=== PATIENT | male | born 1965 | race Caucasian/White ===

== ENCOUNTER 2019-03-24 09:32 | Emergency (ER) | payer SELFPAY ==
[2019-03-24] MEDS ORDERED: predniSONE 20 MG TAB ONE (10:25)
[2019-03-24] MEDS ORDERED: FAMOTIDINE 20 MG TAB ONE (10:25)
[2019-03-24] MEDS ORDERED: ALBUTEROL 2.5 MG/3 ML NEB SOL ONE (10:25)
[2019-03-24] MEDS ORDERED: AZITHROMYCIN 250 MG TAB ONE (10:25)
--- NOTE | 2019-03-24 10:38 | RAD REPORT ---
EXAM DESCRIPTION: Che Davis (2 Views)03/24/2019 10:30 am CLINICAL HISTORY: Cough COMPARISON: 2018 FINDINGS: The lungs appear clear of acute infiltrate. The heart is normal size IMPRESSION: No acute abnormalities displayed
--- NOTE | 2019-03-24 10:55 | ER ---
Nurse's Notes [facility] Name: Juvencio Iyer III Age: 54 yrs Sex: Male : 1965 Arrival Date: 03/24/2019 Time: 09:35 Bed 20 Private MD: Diagnosis: Bronchitis, not specified as acute or chronic;Malaise and fatigue Presentation: 03/24 09:40 Presenting complaint: Productive cough, sinus congestion, dizziness, generalized hb weakness, and malaise x 2 weeks. Transition of care: patient was not received from another setting of care. Onset of symptoms was March 10, 2019. Risk Assessment: Do you want to hurt yourself or someone else? Patient reports no desire to harm self or others. Initial Sepsis Screen: Does the patient meet any 2 criteria? No. Patient's initial sepsis screen is negative. Does the patient have a suspected source of infection? No. Patient's initial sepsis screen is negative. Care prior to arrival: None. 09:40 Method Of Arrival: Ambulatory hb 09:40 Acuity: JESSY 3 hb Triage Assessment: 09:40 General: Appears in no apparent distress. comfortable, Behavior is cooperative, bp appropriate for age, anxious. Pain: Complains of pain in GENERALIZED MYALGIA. EENT: No deficits noted. Neuro: No deficits noted. Cardiovascular: No deficits noted. Respiratory: Breath sounds are coarse bilaterally. GI: No signs and/or symptoms were reported involving the gastrointestinal system. : No signs and/or symptoms were reported regarding the genitourinary system. Derm: No deficits noted. Musculoskeletal: No deficits noted. Historical: - Allergies: 09:42 Codeine; hb - Home Meds: 09:42 None [Active]; hb - PMHx: 09:42 None; hb - PSHx: 09:42 None; hb - Immunization history:: Adult Immunizations up to date. - Social history:: Smoking status: Patient uses tobacco products, smokes one-half pack cigarettes per day. - Ebola Screening: : No symptoms or risks identified at this time. Screenin:01 Abuse screen: Denies threats or abuse. Denies injuries from another. Nutritional bp screening: No deficits noted. Tuberculosis screening: No symptoms or risk factors identified. Fall Risk None identified. Assessment: 09:58 General: SEE TRIAGE NOTE. Cardiovascular: Patient's skin is warm and dry. Respiratory: bp Airway is patent. Respiratory: Breath sounds are clear bilaterally. GI: No signs and/or symptoms were reported involving the gastrointestinal system. : No signs and/or symptoms were reported regarding the genitourinary system. EENT: No deficits noted. Derm: No deficits noted. Musculoskeletal: No deficits noted. 11:12 Reassessment: PT D/C HOME AMBULATORY WITH FAMILY, DX WITH BRONCHITIS. bp Vital Signs: 09:42 BP 127 / 79; Pulse 83; Resp 16; Temp 97.9; Pulse Ox 97% on R/A; Weight 73.03 kg; Height hb 5 ft. 10 in. (177.80 cm); Pain 7/10; 11:13 BP 131 / 75; Pulse 91; Resp 17; Temp 98; Pulse Ox 98% ; bp 09:42 Body Mass Index 23.10 (73.03 kg, 177.80 cm) hb ED Course: 09:35 Patient arrived in ED. as 09:41 Triage completed. hb 09:42 Arm band placed on. hb 09:43 Dana James FNP-C [facility]. snw 09:43 Farzad Bartholomew MD is Attending Physician. snw 09:45 Nate Martinez, RUFINA is Primary Nurse. bp 10:02 Patient has correct armband on for positive identification. Bed in low position. Call bp light in reach. Side rails up X2. 10:31 Chest Pa And Lat (2 Views) XRAY In Process Unspecified. EDMS 11:12 No provider procedures requiring assistance completed. Patient did not have IV access bp during this emergency room visit. Administered Medications: 10:20 Drug: Albuterol 2.5 mg Route: Inhalation; bp 10:20 Drug: predniSONE 40 mg Route: PO; bp 11:13 Follow up: Response: No adverse reaction bp 10:20 Drug: Pepcid 20 mg Route: PO; bp 11:13 Follow up: Response: No adverse reaction bp 10:20 Drug: Zithromax 500 mg Route: PO; bp 11:13 Follow up: Response: No adverse reaction bp Outcome: 10:54 Discharge ordered by . snw 11:12 Discharged to home ambulatory, with family. bp 11:12 Condition: stable 11:12 Discharge instructions given to patient, Instructed on discharge instructions, follow up and referral plans. medication usage, Demonstrated understanding of instructions, follow-up care, medications, Prescriptions given X 4. 11:14 Patient left the ED. bp Signatures: Dispatcher [employer] EDMS Dana James, TIM-Real DUMONT-Vanessa Lares Heather, RN RN Nate Martinez RN RN bp
--- NOTE | 2019-03-24 10:55 | EDPHYS ---
Physician Documentation [facility] Name: Juvencio Iyer III Age: 54 yrs Sex: Male : 1965 Arrival Date: 03/24/2019 Time: 09:35 Bed 20 Private MD: ED Physician Farzad Bartholomew HPI: 03/24 11:23 This 54 yrs old Male presents to ER via Ambulatory with complaints of snw Congestion. 11:23 Onset: The symptoms/episode began/occurred gradually, 2 week(s) ago, and became worse snw and became persistent. Associated signs and symptoms: Pertinent positives: cough, wheezing. It is unknown whether or not the patient has had similar symptoms in the past. The patient has not recently seen a physician. Historical: - Allergies: :42 Codeine; hb - Home Meds: :42 None [Active]; hb - PMHx: :42 None; hb - PSHx: 09:42 None; hb - Immunization history:: Adult Immunizations up to date. - Social history:: Smoking status: Patient uses tobacco products, smokes one-half pack cigarettes per day. - Ebola Screening: : No symptoms or risks identified at this time. ROS: 11:22 Constitutional: Negative for fever, chills, and weight loss, + fatigue and malaise snw Eyes: Negative for injury, pain, redness, and discharge, ENT: Negative for injury, pain, and discharge, Neck: Negative for injury, pain, and swelling, Cardiovascular: Negative for chest pain, palpitations, and edema, Abdomen/GI: Negative for abdominal pain, nausea, vomiting, diarrhea, and constipation, Back: Negative for injury and pain, : Negative for injury, bleeding, discharge, and swelling, MS/Extremity: Negative for injury and deformity, Skin: Negative for injury, rash, and discoloration, Neuro: Negative for headache, weakness, numbness, tingling, and seizure. 11:22 Respiratory: Positive for cough, wheezing. Exam: 11:06 Constitutional: This is a well developed, well nourished patient who is awake, alert, snw and in no acute distress. Head/Face: Normocephalic, atraumatic. Eyes: Pupils equal round and reactive to light, extra-ocular motions intact. Lids and lashes normal. Conjunctiva and sclera are non-icteric and not injected. Cornea within normal limits. Periorbital areas with no swelling, redness, or edema. Neck: Trachea midline, no thyromegaly or masses palpated, and no cervical lymphadenopathy. Supple, full range of motion without nuchal rigidity, or vertebral point tenderness. No Meningismus. Chest/axilla: Normal chest wall appearance and motion. Nontender with no deformity. No lesions are appreciated. Cardiovascular: Regular rate and rhythm with a normal S1 and S2. No gallops, murmurs, or rubs. Normal PMI, no JVD. No pulse deficits. Respiratory: Lungs have equal breath sounds bilaterally, clear to auscultation and percussion. No rales, rhonchi or wheezes noted. No increased work of breathing, no retractions or nasal flaring. Abdomen/GI: Soft, non-tender, with normal bowel sounds. No distension or tympany. No guarding or rebound. No evidence of tenderness throughout. Back: No spinal tenderness. No costovertebral tenderness. Full range of motion. Skin: Warm, dry with normal turgor. Normal color with no rashes, no lesions, and no evidence of cellulitis. MS/ Extremity: Pulses equal, no cyanosis. Neurovascular intact. Full, normal range of motion. Neuro: Awake and alert, GCS 15, oriented to person, place, time, and situation. Cranial nerves II-XII grossly intact. Motor strength 5/5 in all extremities. Sensory grossly intact. Cerebellar exam normal. Normal gait. Psych: Awake, alert, with orientation to person, place and time. Behavior, mood, and affect are within normal limits. 11:06 ENT: Ear canal(s): are normal, TM's: erythema, Nose: is normal, Mouth: is normal, Posterior pharynx: erythema, that is mild, that is moderate, Voice: is normal. Vital Signs: 09:42 BP 127 / 79; Pulse 83; Resp 16; Temp 97.9; Pulse Ox 97% on R/A; Weight 73.03 kg; Height hb 5 ft. 10 in. (177.80 cm); Pain 7/10; 11:13 BP 131 / 75; Pulse 91; Resp 17; Temp 98; Pulse Ox 98% ; bp 09:42 Body Mass Index 23.10 (73.03 kg, 177.80 cm) hb MDM: 09:45 Patient medically screened. [facility] 11:05 Data reviewed: vital signs, nurses notes. Data interpreted: Pulse oximetry: on room air snw is 97 %. Interpretation: normal. Counseling: I had a detailed discussion with the patient and/or guardian regarding: the historical points, exam findings, and any diagnostic results supporting the discharge/admit diagnosis, radiology results, the need for outpatient follow up, to return to the emergency department if symptoms worsen or persist or if there are any questions or concerns that arise at home. Counseling: I had a detailed discussion with the patient and/or guardian regarding: smoking cessation. Special discussion: Based on the history and exam findings, there is no indication for further emergent testing or inpatient evaluation. I discussed with the patient/guardian the need to see the primary care provider for further evaluation of the symptoms. 03/24 10:05 Order name: Chest Pa And Lat (2 Views) XRAY; Complete Time: 10:42 snw Administered Medications: 10:20 Drug: Albuterol 2.5 mg Route: Inhalation; bp 10:20 Drug: predniSONE 40 mg Route: PO; bp 11:13 Follow up: Response: No adverse reaction bp 10:20 Drug: Pepcid 20 mg Route: PO; bp 11:13 Follow up: Response: No adverse reaction bp 10:20 Drug: Zithromax 500 mg Route: PO; bp 11:13 Follow up: Response: No adverse reaction bp Disposition: 16:39 Co-signature as Attending Physician, Farzad Bartholomew MD I agree with the assessment and [facility] plan of care. Disposition: 03/24/19 10:54 Discharged to Home. Impression: Bronchitis, not specified as acute or chronic, Malaise and fatigue. - Condition is Stable. - Discharge Instructions: Acute Bronchitis, Adult, How to Use an Inhaler, Fatigue, Cough, Adult. - Prescriptions for Zyrtec 10 mg Oral Tablet - take 1 tablet by ORAL route once daily As needed; 20 tablet. Prednisone 20 mg Oral Tablet - take 2 tablet by ORAL route once daily for 5 days; 10 tablet. Albuterol Sulfate 90 mcg/actuation - inhale 1-2 puff by INHALATION route every 4-6 hours; 1 Inhaler. Pepcid 20 mg Oral Tablet - take 1 tablet by ORAL route once daily; 20 tablet. Zithromax 500 mg Oral Tablet - take 1 tablet by ORAL route once daily for 5 days; 5 tablet. - Work release form, Medication Reconciliation Form, Thank You Letter, Antibiotic Education, Prescription Opioid Use form. - Follow up: Private Physician; When: 2 - 3 days; Reason: Recheck today's complaints, Continuance of care, Re-evaluation by your physician. Follow up: Emergency Department; When: As needed; Reason: Worsening of condition. Signatures: Dispatcher [employer] EDMN Farzad Bartholomew MD MD cha Therrien, Shelly, SCIENTIST-C SCIENTIST-Csnw aMureen Anguiano, RUFINA RN Nate Martinez, RUFINA RN bp Corrections: (The following items were deleted from the chart) 11:14 10:54 03/24/2019 10:54 Discharged to Home. Impression: Bronchitis, not specified as bp acute or chronic; Malaise and fatigue. Condition is Stable. Discharge Instructions: Acute Bronchitis, Adult, How to Use an Inhaler, Fatigue, Cough, Adult. Prescriptions for Zyrtec 10 mg Oral Tablet - take 1 tablet by ORAL route once daily As needed; 20 tablet, Prednisone 20 mg Oral Tablet - take 2 tablet by ORAL route once daily for 5 days; 10 tablet, Albuterol Sulfate 90 mcg/actuation - inhale 1-2 puff by INHALATION route every 4-6 hours; 1 Inhaler, Pepcid 20 mg Oral Tablet - take 1 tablet by ORAL route once daily; 20 tablet, Zithromax 500 mg Oral Tablet - take 1 tablet by ORAL route once daily for 5 days; 5 tablet. and Forms are Work release form, Medication Reconciliation Form, Thank You Letter, Antibiotic Education, Prescription Opioid Use. Follow up: Private Physician; When: 2 - 3 days; Reason: Recheck today's complaints, Continuance of care, Re-evaluation by your physician. Follow up: Emergency Department; When: As needed; Reason: Worsening of condition. snw
[2019-03-24 11:34] VITALS: BP 131/75; TEMP 98; O2SAT 98
== END 2019-03-24 11:14 | disposition home or self-care (01) ==
LOC: ER 09:32
DX: J40 Bronchitis, not specified as acute or chronic (principal); R53.81 Other malaise; R53.83 Other fatigue; F17.210 Nicotine dependence, cigarettes, uncomplicated; Z88.6 Allergy status to analgesic agent
CPT/HCPCS: 71046; 99284; J7512

== ENCOUNTER 2019-05-06 13:59 | Emergency (ER) | payer SELFPAY ==
--- NOTE | 2019-05-06 15:01 | ER ---
Nurse's Notes [facility] Name: Juvencio Iyer III Age: 54 yrs Sex: Male : 1965 Arrival Date: 05/06/2019 Time: 14:05 Bed 28 Private MD: None, None Diagnosis: Bronchitis, not specified as acute or chronic;Tobacco use;Tobacco abuse counseling Presentation: 05/06 14:16 Presenting complaint: Patient states: "I've been dealing with a cold, my allergies, and aa5 sinus stuff for a few days now". Transition of care: patient was not received from another setting of care. Onset of symptoms was April 2019. Risk Assessment: Do you want to hurt yourself or someone else? Patient reports no desire to harm self or others. Initial Sepsis Screen: Does the patient meet any 2 criteria? No. Patient's initial sepsis screen is negative. Does the patient have a suspected source of infection? No. Patient's initial sepsis screen is negative. Care prior to arrival: None. 14:16 Method Of Arrival: Ambulatory aa5 14:16 Acuity: JESSY 4 aa5 Historical: - Allergies: 14:17 Codeine (dizzy); aa5 - PMHx: 14:17 None; aa5 - PSHx: 14:17 None; aa5 - Immunization history:: Adult Immunizations unknown. - Social history:: Smoking status: Patient uses tobacco products, smokes one-half pack cigarettes per day. - Ebola Screening: : No symptoms or risks identified at this time. - Family history:: not pertinent. Screenin:41 Abuse screen: Denies threats or abuse. Denies injuries from another. Nutritional rv screening: No deficits noted. Tuberculosis screening: No symptoms or risk factors identified. Fall Risk None identified. Assessment: 14:39 General: Appears in no apparent distress. comfortable, Behavior is calm, cooperative. rv Pain: Denies pain. Neuro: Level of Consciousness is awake, alert, obeys commands, Oriented to person, place, time, situation. Cardiovascular: Patient's skin is warm and dry. Respiratory: Airway is patent. GI: No signs and/or symptoms were reported involving the gastrointestinal system. : No signs and/or symptoms were reported regarding the genitourinary system. EENT: Reports nasal congestion. Derm: Skin is intact. Musculoskeletal: No signs and/or symptoms reported regarding the musculoskeletal system. Vital Signs: 14:17 BP 125 / 87; Pulse 85; Resp 16 S; Temp 98.1(TE); Pulse Ox 98% on R/A; Weight 70.31 kg aa5 (R); Height 5 ft. 9 in. (175.26 cm) (R); 15:18 BP 121 / 85; Pulse 84; Resp 15; Temp 98; Pulse Ox 99% on R/A; rv 14:17 Body Mass Index 22.89 (70.31 kg, 175.26 cm) aa ED Course: 14:05 Patient arrived in ED. mr 14:05 None, None is Private Physician. mr 14:16 Arm band placed on. aa 14:17 Triage completed. aa 14:30 Matthew Ralph, RN is Primary Nurse. rv 14:34 Farzad Bartholomew MD is Attending Physician. rosamaria 14:42 Patient has correct armband on for positive identification. Bed in low position. Call rv light in reach. Side rails up X 1. Pulse ox on. NIBP on. 14:59 Jarret Thao MD is Referral Physician. rosamaria 15:19 No provider procedures requiring assistance completed. Patient did not have IV access rv during this emergency room visit. Administered Medications: 15:03 Drug: Zithromax 500 mg Route: PO; rv 15:17 Follow up: Response: No adverse reaction rv Outcome: 15:00 Discharge ordered by . rosamaria 15:20 Discharged to home ambulatory, with family. rv 15:20 Condition: good 15:20 Discharge instructions given to patient, Instructed on discharge instructions, follow up and referral plans. medication usage, Demonstrated understanding of instructions, follow-up care, medications, Prescriptions given X 3. 15:20 Patient left the ED. rv Signatures: Farzad Bartholomew MD MD cha Rivera, Mary mr CalderAlicia kingston, RN RN aa Matthew Ralph, RUFINA RN rv
--- NOTE | 2019-05-06 15:01 | EDPHYS ---
Physician Documentation [facility] Name: Juvencio Iyer III Age: 54 yrs Sex: Male : 1965 Arrival Date: 05/06/2019 Time: 14:05 Bed 28 Private MD: None, None ED Physician Farzad Bartholomew HPI: 05/06 14:55 This 54 yrs old Male presents to ER via Ambulatory with complaints of Flu rosamaria Symptoms. 14:55 The patient or guardian reports cough, described as mild. Onset: The symptoms/episode rosamaria began/occurred 3 day(s) ago. Modifying factors: The symptoms are alleviated by nothing. the symptoms are aggravated by activity. The patient or guardian reports difficulty breathing, flu symptoms. Severity of symptoms: At their worst the symptoms were mild, in the emergency department the symptoms are unchanged. Associated signs and symptoms: Pertinent positives: rhinorrhea, sore throat. Modifying factors: The symptoms are alleviated by nothing, cool environment, the symptoms are aggravated by nothing. Severity of symptoms: At their worst the symptoms were mild in the emergency department the symptoms are unchanged. Historical: - Allergies: 14:17 Codeine (dizzy); aa5 - PMHx: 14:17 None; aa5 - PSHx: 14:17 None; aa5 - Immunization history:: Adult Immunizations unknown. - Social history:: Smoking status: Patient uses tobacco products, smokes one-half pack cigarettes per day. - Ebola Screening: : No symptoms or risks identified at this time. - Family history:: not pertinent. ROS: 14:55 Constitutional: Negative for fever, chills, and weight loss, Eyes: Negative for injury, rosamaria pain, redness, and discharge, ENT: Negative for injury, pain, and discharge, Neck: Negative for injury, pain, and swelling, Cardiovascular: Negative for chest pain, palpitations, and edema, Abdomen/GI: Negative for abdominal pain, nausea, vomiting, diarrhea, and constipation, Back: Negative for injury and pain, : Negative for injury, bleeding, discharge, and swelling, MS/Extremity: Negative for injury and deformity, Skin: Negative for injury, rash, and discoloration, Neuro: Negative for headache, weakness, numbness, tingling, and seizure, Psych: Negative for depression, anxiety, suicide ideation, homicidal ideation, and hallucinations, Allergy/Immunology: Negative for hives, rash, and allergies, Endocrine: Negative for neck swelling, polydipsia, polyuria, polyphagia, and marked weight changes, Hematologic/Lymphatic: Negative for swollen nodes, abnormal bleeding, and unusual bruising. 14:55 Respiratory: Positive for cough, with green sputum. Exam: 14:55 Constitutional: This is a well developed, well nourished patient who is awake, alert, rosamaria and in no acute distress. Head/Face: Normocephalic, atraumatic. Eyes: Pupils equal round and reactive to light, extra-ocular motions intact. Lids and lashes normal. Conjunctiva and sclera are non-icteric and not injected. Cornea within normal limits. Periorbital areas with no swelling, redness, or edema. ENT: Nares patent. No nasal discharge, no septal abnormalities noted. Tympanic membranes are normal and external auditory canals are clear. Oropharynx with no redness, swelling, or masses, exudates, or evidence of obstruction, uvula midline. Mucous membranes moist. Neck: Trachea midline, no thyromegaly or masses palpated, and no cervical lymphadenopathy. Supple, full range of motion without nuchal rigidity, or vertebral point tenderness. No Meningismus. Chest/axilla: Normal chest wall appearance and motion. Nontender with no deformity. No lesions are appreciated. Cardiovascular: Regular rate and rhythm with a normal S1 and S2. No gallops, murmurs, or rubs. Normal PMI, no JVD. No pulse deficits. Abdomen/GI: Soft, non-tender, with normal bowel sounds. No distension or tympany. No guarding or rebound. No evidence of tenderness throughout. Back: No spinal tenderness. No costovertebral tenderness. Full range of motion. Male : Normal genitalia with no discharge or lesions. Skin: Warm, dry with normal turgor. Normal color with no rashes, no lesions, and no evidence of cellulitis. MS/ Extremity: Pulses equal, no cyanosis. Neurovascular intact. Full, normal range of motion. Neuro: Awake and alert, GCS 15, oriented to person, place, time, and situation. Cranial nerves II-XII grossly intact. Motor strength 5/5 in all extremities. Sensory grossly intact. Cerebellar exam normal. Normal gait. Psych: Awake, alert, with orientation to person, place and time. Behavior, mood, and affect are within normal limits. 14:55 Respiratory: the patient does not display signs of respiratory distress, Respirations: normal, no acute changes, Breath sounds: bronchial sounds, that are mild, decreased breath sounds, are not appreciated, rhonchi, that are mild, stridor, is not appreciated. Vital Signs: 14:17 BP 125 / 87; Pulse 85; Resp 16 S; Temp 98.1(TE); Pulse Ox 98% on R/A; Weight 70.31 kg aa5 (R); Height 5 ft. 9 in. (175.26 cm) (R); 15:18 BP 121 / 85; Pulse 84; Resp 15; Temp 98; Pulse Ox 99% on R/A; rv 14:17 Body Mass Index 22.89 (70.31 kg, 175.26 cm) aa5 MDM: 14:34 Patient medically screened. [facility] 14:58 Data reviewed: vital signs, nurses notes. rosamaria Administered Medications: 15:03 Drug: Zithromax 500 mg Route: PO; rv 15:17 Follow up: Response: No adverse reaction rv Disposition: 05/06/19 15:00 Discharged to Home. Impression: Bronchitis, not specified as acute or chronic, Tobacco use, Tobacco abuse counseling. - Condition is Stable. - Discharge Instructions: Acute Bronchitis, Adult, Steps to Quit Smoking, Smoking Hazards, Upper Respiratory Infection, Adult, Aspirin and Your Heart. - Prescriptions for Zyrtec- D 5-120 mg Oral Tablet Sustained Release 12 hr - take 1 tablet by ORAL route every 12 hours As needed; 20 tablet. Zithromax Z- Virgilio 250 mg Oral Tablet - take 1 tablet by ORAL route as directed for 5 days Day 1 - take two (2) tablets one time. Day 2, 3, 4 , 5 take one (1) tablet once daily.; 6 tablet. Medrol (Virgilio) 4 mg Oral Tablets, Dose Pack - take 1 tablet by ORAL route as directed - follow package instructions; 1 packet. - Work release form, Medication Reconciliation Form, Thank You Letter, Antibiotic Education, Prescription Opioid Use form. - Follow up: Private Physician; When: 2 - 3 days; Reason: Recheck today's complaints, Continuance of care, Re-evaluation by your physician. Follow up: Jarret Thao MD; When: 2 - 3 days; Reason: Recheck today's complaints, Continuance of care, Re-evaluation by your physician. - Problem is new. - Symptoms have improved. Signatures: Farzad Bartholomew MD MD cha Calderon, Audri, RN RN aa5 Matthew Ralph RN RN rv Corrections: (The following items were deleted from the chart) 15:20 15:00 05/06/2019 15:00 Discharged to Home. Impression: Bronchitis, not specified as rv acute or chronic; Tobacco use; Tobacco abuse counseling. Condition is Stable. Forms are Medication Reconciliation Form, Thank You Letter, Antibiotic Education, Prescription Opioid Use. Follow up: Private Physician; When: 2 - 3 days; Reason: Recheck today's complaints, Continuance of care, Re-evaluation by your physician. Follow up: Jarret Thao; When: 2 - 3 days; Reason: Recheck today's complaints, Continuance of care, Re-evaluation by your physician. Problem is new. Symptoms have improved. rosamaria
[2019-05-06] MEDS ORDERED: AZITHROMYCIN 250 MG TAB ONE (15:02)
[2019-05-06 15:31] VITALS: BP 121/85; TEMP 98; O2SAT 99
== END 2019-05-06 15:20 | disposition home or self-care (01) ==
LOC: ER 13:59
DX: J40 Bronchitis, not specified as acute or chronic (principal); Z72.0 Tobacco use; Z71.6 Tobacco abuse counseling; Z88.6 Allergy status to analgesic agent; F17.210 Nicotine dependence, cigarettes, uncomplicated
CPT/HCPCS: 99283

== ENCOUNTER 2019-07-21 00:35 | Emergency (ER) | payer SELFPAY ==
--- NOTE | 2019-07-21 01:14 | EDPHYS ---
Physician Documentation [facility] Name: Juvencio Iyer III Age: 54 yrs Sex: Male : 1965 Arrival Date: 07/21/2019 Time: 00:39 Bed 24 Private MD: ED Physician Naresh Celis HPI: 07/21 01:10 This 54 yrs old Male presents to ER via Unassigned with complaints of Sinus jr8 Congestion. 01:10 Onset: The symptoms/episode began/occurred gradually, 2 day(s) ago. Severity of jr8 symptoms: At their worst the symptoms were moderate, in the emergency department the symptoms are unchanged. Modifying factors: The symptoms are alleviated by nothing, the symptoms are aggravated by nothing. The patient has not experienced similar symptoms in the past. The patient has not recently seen a physician. Patient stated that he has had toothache and sinus congestion with pressure and pain for past couple of days. Trying OTC medication but not working . Historical: - Allergies: 02:06 No Known Allergies; fu - PSHx: 02:07 None; fu - Immunization history:: Adult Immunizations not up to date. - Social history:: Smoking status: Patient uses tobacco products. - Ebola Screening: : No symptoms or risks identified at this time. ROS: 01:10 Eyes: Negative for injury, pain, redness, and discharge, Neck: Negative for injury, jr8 pain, and swelling, Cardiovascular: Negative for chest pain, palpitations, and edema, Respiratory: Negative for shortness of breath, cough, wheezing, and pleuritic chest pain, Abdomen/GI: Negative for abdominal pain, nausea, vomiting, diarrhea, and constipation, Back: Negative for injury and pain, MS/Extremity: Negative for injury and deformity, Skin: Negative for injury, rash, and discoloration. 01:10 ENT: Positive for dental pain, rhinorrhea, sinus congestion, sinus pain, Negative for drainage from ear(s), ear pain, sore throat. 01:10 Neuro: Positive for headache. Exam: 01:10 Eyes: Pupils equal round and reactive to light, extra-ocular motions intact. Lids and jr8 lashes normal. Conjunctiva and sclera are non-icteric and not injected. Cornea within normal limits. Periorbital areas with no swelling, redness, or edema. Neck: Trachea midline, no thyromegaly or masses palpated, and no cervical lymphadenopathy. Supple, full range of motion without nuchal rigidity, or vertebral point tenderness. No Meningismus. Cardiovascular: Regular rate and rhythm with a normal S1 and S2. No gallops, murmurs, or rubs. Normal PMI, no JVD. No pulse deficits. Respiratory: Lungs have equal breath sounds bilaterally, clear to auscultation and percussion. No rales, rhonchi or wheezes noted. No increased work of breathing, no retractions or nasal flaring. Abdomen/GI: Soft, non-tender, with normal bowel sounds. No distension or tympany. No guarding or rebound. No evidence of tenderness throughout. Back: No spinal tenderness. No costovertebral tenderness. Full range of motion. Skin: Warm, dry with normal turgor. Normal color with no rashes, no lesions, and no evidence of cellulitis. MS/ Extremity: Pulses equal, no cyanosis. Neurovascular intact. Full, normal range of motion. Neuro: Awake and alert, GCS 15, oriented to person, place, time, and situation. Cranial nerves II-XII grossly intact. Motor strength 5/5 in all extremities. Sensory grossly intact. Cerebellar exam normal. Normal gait. 01:10 Head/face: Noted is swelling, that is mild, of the left cheek, Sinus tenderness, that is mild, is located over the left ethmoid sinus and left maxillary sinus. 01:10 ENT: Exam is negative for ear discharge, TM abnormalities, nasal discharge, enlarged tonsils, peritonsillar abscess pharyngitis, Dental exam: dental caries, that is moderate, diffusely, fractured teeth are noted, specifically the upper left first molar (#14). Vital Signs: 01:10 BP 92 / 68; Pulse 69; Resp 18; Temp 98.8; Pulse Ox 94% ; Pain 9/10; fu MDM: 00:59 Patient medically screened. jr8 01:10 Data reviewed: vital signs, nurses notes, and as a result, I will discharge patient. jr8 Data interpreted: Pulse oximetry: on room air is 100 %. Interpretation: normal. Counseling: I had a detailed discussion with the patient and/or guardian regarding: the historical points, exam findings, and any diagnostic results supporting the discharge/admit diagnosis, the need for outpatient follow up, a family practitioner, to return to the emergency department if symptoms worsen or persist or if there are any questions or concerns that arise at home. Administered Medications: 01:27 Not Given (Patient Refused): TORadol - Ketorolac 15 mg IM once jr8 01:37 Drug: Tylenol #3 (300 mg-30 mg) 2 tabs Route: PO; fu Disposition: 04:31 Co-signature as Attending Physician, Naresh Celis MD. ma2 Disposition: 07/21/19 01:14 Discharged to Home. Impression: Acute sinusitis, Dental root caries. - Condition is Stable. - Discharge Instructions: Dental Pain, Sinusitis, Adult. - Prescriptions for Augmentin 875- 125 mg Oral Tablet - take 1 tablet by ORAL route every 12 hours for 10 days; 20 tablet. Zyrtec- D 5-120 mg Oral Tablet Sustained Release 12 hr - take 1 tablet by ORAL route every 12 hours As needed; 14 tablet. Medrol (Virgilio) 4 mg Oral Tablets, Dose Pack - take 1 tablet by ORAL route as directed - follow package instructions; 1 packet. Tylenol- Codeine #3 300-30 mg Oral Tablet - take 2 tablets by ORAL route every 6 hours As needed; 12 tablet. - Work release form, Medication Reconciliation Form, Thank You Letter, Antibiotic Education, Prescription Opioid Use form. - Follow up: Private Physician; When: 2 - 3 days; Reason: Recheck today's complaints, Continuance of care, Re-evaluation by your physician. - Problem is new. - Symptoms have improved. Signatures: Declan Wong PA PA jr8 Peter Carmona RN RN fu Alzahri, Mohammad, MD MD ma2 Corrections: (The following items were deleted from the chart) 01:43 01:14 07/21/2019 01:14 Discharged to Home. Impression: Acute sinusitis; Dental root fu caries. Condition is Stable. Forms are Medication Reconciliation Form, Thank You Letter, Antibiotic Education, Prescription Opioid Use. Follow up: Private Physician; When: 2 - 3 days; Reason: Recheck today's complaints, Continuance of care, Re-evaluation by your physician. Problem is new. Symptoms have improved. jr8
[2019-07-21] MEDS ORDERED: CODEINE 30MG/APAP 300MG TAB ONE (01:23)
[2019-07-21] MEDS ORDERED: KETOROLAC 30 MG/ML INJ ONE (01:23)
--- NOTE | 2019-07-21 01:44 | ER ---
Nurse's Notes [facility] Name: Juvencio Iyer III Age: 54 yrs Sex: Male : 1965 Arrival Date: 07/21/2019 Time: 00:39 Bed 24 Private MD: Diagnosis: Acute sinusitis;Dental root caries Presentation: 07/21 01:10 Presenting complaint: Patient states: fever, cough, headache, toothache for 10 days. fu Transition of care: patient was not received from another setting of care. Onset of symptoms was July 10, 2019. Risk Assessment: Do you want to hurt yourself or someone else? Patient reports no desire to harm self or others. Initial Sepsis Screen: Does the patient meet any 2 criteria? No. Patient's initial sepsis screen is negative. Does the patient have a suspected source of infection? No. Patient's initial sepsis screen is negative. Care prior to arrival: None. 01:10 Method Of Arrival: Ambulatory fu 01:10 Acuity: JESSY 4 fu Historical: - Allergies: 02:06 No Known Allergies; fu - PSHx: 02:07 None; fu - Immunization history:: Adult Immunizations not up to date. - Social history:: Smoking status: Patient uses tobacco products. - Ebola Screening: : No symptoms or risks identified at this time. Screenin:00 Abuse screen: Denies threats or abuse. Nutritional screening: No deficits noted. fu Tuberculosis screening: No symptoms or risk factors identified. Fall Risk None identified. Assessment: 01:29 General: Appears in no apparent distress. Behavior is calm, cooperative, appropriate fu for age, Smells of smoke. General: Reports fever for. Pain: Complains of pain in upper left first molar (#14) and left maxillary sinus and left ethmoid sinus and left cheek Pain currently is 8 out of 10 on a pain scale. Pain began 10 days ago. Neuro: Level of Consciousness is awake, alert, obeys commands, Oriented to person, place, time, situation. Neuro: Reports headache. Respiratory: Airway is patent. EENT: Reports. EENT: Reports nasal congestion tooth ache. Derm: swelling to left lower eyelid. Musculoskeletal: No signs and/or symptoms reported regarding the musculoskeletal system. Vital Signs: 01:10 BP 92 / 68; Pulse 69; Resp 18; Temp 98.8; Pulse Ox 94% ; Pain 9/10; fu ED Course: 00:39 Patient arrived in ED. cl3 00:46 Declan Wong PA is PHCP. jr8 00:46 Naresh Celis MD is Attending Physician. jr8 01:00 Arm band placed on right wrist. fu 01:00 Patient has correct armband on for positive identification. Bed in low position. Call fu light in reach. Side rails up X 1. 01:00 No provider procedures requiring assistance completed. Patient did not have IV access fu during this emergency room visit. 01:01 Peter Carmona, RN is Primary Nurse. fu 01:35 Triage completed. fu Administered Medications: 01:27 Not Given (Patient Refused): TORadol - Ketorolac 15 mg IM once jr8 01:37 Drug: Tylenol #3 (300 mg-30 mg) 2 tabs Route: PO; fu Outcome: 01:14 Discharge ordered by . jr8 01:30 Discharged to home ambulatory, with family. fu 01:30 Condition: stable 01:30 Discharge instructions given to patient, Instructed on discharge instructions, follow up and referral plans. Demonstrated understanding of instructions, follow-up care, Prescriptions given X 3. 01:43 Patient left the ED. fu Signatures: Declan Wong PA PA jr8 Peter Carmona, RN RN Marya Harmon cl3
[2019-07-21 02:00] VITALS: BP 92/68; TEMP 98.8; O2SAT 94
== END 2019-07-21 01:43 | disposition home or self-care (01) ==
LOC: ER 00:35
DX: J01.90 Acute sinusitis, unspecified (principal); K02.7 Dental root caries; Z72.0 Tobacco use
CPT/HCPCS: 99283

== ENCOUNTER 2021-10-12 08:37 | Emergency (ER) | payer SELFPAY ==
--- NOTE | 2021-10-12 08:59 | ER ---
Nurse's Notes [facility] Name: Juvencio Iyer III Age: 56 yrs Sex: Male : 1965 Arrival Date: 10/12/2021 Time: 08:38 Bed 5 Private MD: Diagnosis: Rash and other nonspecific skin eruption;Infected Insect Bite Presentation: 10/12 08:48 Chief complaint: Patient states: he has a chaffing rash on his bottom from sweating at ap3 work. Patient reports the rash has been present for approx three days now, however he reports it has gotten worse over last nights graveyard shift. Patient is here for evaluation of the rash in hopes of getting relief. Coronavirus screen: At this time, the client does not indicate any symptoms associated with coronavirus-19. Ebola Screen: No symptoms or risks identified at this time. Initial Sepsis Screen: Does the patient meet any 2 criteria? No. Patient's initial sepsis screen is negative. Does the patient have a suspected source of infection? No. Patient's initial sepsis screen is negative. Risk Assessment: Do you want to hurt yourself or someone else? Patient reports no desire to harm self or others. Onset of symptoms was October 09, 2021. 08:48 Method Of Arrival: Ambulatory ap3 08:48 Acuity: JESSY 4 ap3 Triage Assessment: 08:51 General: Appears in no apparent distress. Behavior is calm, cooperative, appropriate ap3 for age. Pain: Complains of pain in buttocks. Neuro: Level of Consciousness is awake, alert, obeys commands, Oriented to person, place, time, situation. Cardiovascular: Patient's skin is warm and dry. Respiratory: Airway is patent Respiratory effort is even, unlabored, Respiratory pattern is regular, symmetrical. Derm: Reports chaffing rash on his bottom. patient requested nurse not be present for providers exam of the effected area. Historical: - Allergies: 08:50 Codeine; ap3 - Home Meds: 08:50 None [Active]; ap3 - PMHx: 08:50 None; ap3 - Immunization history:: Client reports having NOT received the Covid vaccine. Flu vaccine is not up to date. - Social history:: Smoking status: Patient reports the use of cigarette tobacco products, denies chronic smoking, but will smoke occasionally. Screenin:53 Abuse screen: Denies threats or abuse. Nutritional screening: No deficits noted. ap3 Tuberculosis screening: No symptoms or risk factors identified. Fall Risk None identified. Vital Signs: 08:48 BP 131 / 84; Pulse 91; Temp 97.8; Pulse Ox 98% ; Weight 77.11 kg; Height 5 ft. 9 in. ap3 (175.26 cm); 08:48 Body Mass Index 25.10 (77.11 kg, 175.26 cm) ap3 ED Course: 08:38 Patient arrived in ED. am2 08:38 Dany Clarke PA is PHCP. [facility] 08:39 Elijah Mcdonald MD is Attending Physician. [facility] 08:48 Eloisa Torres, RN is Primary Nurse. ap3 08:50 Triage completed. ap3 08:53 Arm band placed on right wrist. ap3 08:54 Patient has correct armband on for positive identification. Bed in low position. Call ap3 light in reach. Pulse ox on. NIBP on. Door closed. Noise minimized. 09:14 No provider procedures requiring assistance completed. Patient did not have IV access ap3 during this emergency room visit. Administered Medications: No medications were administered Outcome: 08:59 Discharge ordered by . [facility] 09:14 Discharged to home ambulatory. ap3 09:14 Condition: good 09:14 Discharge instructions given to patient, Instructed on discharge instructions, follow up and referral plans. medication usage, Demonstrated understanding of instructions, follow-up care, medications, Prescriptions given X 2. 09:14 Patient left the ED. ap3 Signatures: Dany Clarke PA PA jmm Moreno, Amanda am2 Eloisa Torres, RN RN ap3
--- NOTE | 2021-10-12 08:59 | EDPHYS ---
Physician Documentation [facility] Name: Juvencio Iyer III Age: 56 yrs Sex: Male : 1965 Arrival Date: 10/12/2021 Time: 08:38 Bed 5 Private MD: ED Physician Elijah Mcdonald HPI: 10/12 08:54 This 56 yrs old Male presents to ER via Ambulatory with complaints of Rash. [facility] 08:54 The patient's rash thought to be caused by an unknown cause. The rash is located on the [facility] buttocks. Onset: The symptoms/episode began/occurred gradually. Associated signs and symptoms: Pertinent positives: itching, Pertinent negatives: fever. This is a 56-year-old male no chronic medical conditions presents emerged part with complaints of rash to his buttocks. Patient states he works strenuous job and the area does get wet often with sweat, etc. Also complains of a bite with redness. . Historical: - Allergies: 08:50 Codeine; ap3 - Home Meds: 08:50 None [Active]; ap3 - PMHx: 08:50 None; ap3 - Immunization history:: Client reports having NOT received the Covid vaccine. Flu vaccine is not up to date. - Social history:: Smoking status: Patient reports the use of cigarette tobacco products, denies chronic smoking, but will smoke occasionally. ROS: 08:54 Constitutional: Negative for fever, chills, and weight loss, Cardiovascular: Negative jmm for chest pain, palpitations, and edema, Respiratory: Negative for shortness of breath, cough, wheezing, and pleuritic chest pain. 08:54 Skin: Positive for erythema. 08:54 All other systems are negative. Exam: 08:54 Constitutional: This is a well developed, well nourished patient who is awake, alert, jmm and in no acute distress. Head/Face: atraumatic. Eyes: EOMI, no conjunctival erythema appreciated ENT: Moist Mucus Membranes Neck: Trachea midline, Supple Chest/axilla: Normal chest wall appearance and motion. Cardiovascular: Regular rate and rhythm. No edema appreciated Respiratory: Normal respirations, no respiratory distress appreciated Abdomen/GI: Non distended, soft Back: Normal ROM 08:54 Skin: Erythema with a indurated border noted to the superior gluteal cleft around the pilonidal region. Nontender to palpation area described as itchy. There is also a insect bite to the right lower leg, mildly erythematous, no surrounding induration, no purulent drainage appreciated, nonfluctuant.. 08:54 Neuro: Orientation: is normal, Mentation: is normal, Memory: is normal. 08:54 Psych: Behavior/mood is pleasant, cooperative. Vital Signs: 08:48 BP 131 / 84; Pulse 91; Temp 97.8; Pulse Ox 98% ; Weight 77.11 kg; Height 5 ft. 9 in. ap3 (175.26 cm); 08:48 Body Mass Index 25.10 (77.11 kg, 175.26 cm) ap3 MDM: 08:44 Patient medically screened. [facility] 08:57 Data reviewed: vital signs, nurses notes. Counseling: I had a detailed discussion with jordon the patient and/or guardian regarding: the historical points, exam findings, and any diagnostic results supporting the discharge/admit diagnosis, the need for outpatient follow up, to return to the emergency department if symptoms worsen or persist or if there are any questions or concerns that arise at home. ED course: Patient is alert nontoxic in appearance in the ED. No signs of sepsis. Rash appears more likely fungal. Will treat with topical antifungal cream. Insect bite appears to be mildly infected. Will treat with oral antibiotics. Patient otherwise given strict return precautions. Patient understood agrees plan of care. I did recommend fingerstick to check his glucose level due to the fungal rash. Patient refused.. Administered Medications: No medications were administered Disposition: 10:33 Co-signature as Attending Physician, Elijah Mcdonald MD I agree with the assessment and kdr plan of care. Disposition Summary: 10/12/21 08:59 Discharge Ordered Location: Home [facility] Condition: Stable jm Diagnosis - Rash and other nonspecific skin eruption jmm - Infected Insect Bite [facility] Followup: [facility] - With: Private Physician - When: 2 - 3 days - Reason: Recheck today's complaints, Continuance of care, Re-evaluation by your physician Discharge Instructions: - Discharge Summary Sheet [facility] - Insect Bite, Adult jmm - Tinea Versicolor, [id number] [facility] Forms: - Medication Reconciliation Form [facility] - Thank You Letter [facility] - Antibiotic Education m - Prescription Opioid Use [facility] Prescriptions: - nystatin-triamcinolone 100,000-0.1 unit/g-% Topical cream - apply 1 application by TOPICAL route 2 times per day for 14 days; 1 tube; jmm Refills: 0, Product Selection Permitted - Doxycycline Hyclate 100 mg Oral Tablet - take 1 tablet by ORAL route every 12 hours; 20 tablet; Refills: 0, Product [facility] Selection Permitted Signatures: Elijah Mcdonald MD MD kdr Mickail, Joel, PA PA jmm Prokisch, Amanda RN RN ap3
[2021-10-12 16:12] VITALS: BP 131/84; TEMP 97.8; O2SAT 98
== END 2021-10-12 09:14 | disposition home or self-care (01) ==
LOC: ER 08:37
DX: R21 Rash and other nonspecific skin eruption (principal); S80.861A Insect bite (nonvenomous), right lower leg, initial encounter; L08.9 Local infection of the skin and subcutaneous tissue, unspecified; F17.210 Nicotine dependence, cigarettes, uncomplicated; Z88.5 Allergy status to narcotic agent
CPT/HCPCS: 99283

== ENCOUNTER 2021-10-31 08:13 | Emergency (ER) | payer SELFPAY ==
--- NOTE | 2021-10-31 08:30 | ER ---
Nurse's Notes [facility] Name: Juvencio Iyer III Age: 56 yrs Sex: Male : 1965 Arrival Date: 10/31/2021 Time: 08:15 Bed 6 Private MD: Diagnosis: Tinea corporis Presentation: 10/31 08:21 Ebola Screen: No symptoms or risks identified at this time. Initial Sepsis Screen: Does ph the patient meet any 2 criteria? No. Patient's initial sepsis screen is negative. Does the patient have a suspected source of infection? No. Patient's initial sepsis screen is negative. Risk Assessment: Do you want to hurt yourself or someone else? Patient reports no desire to harm self or others. Onset of symptoms was October 31, 2021. 08:21 Method Of Arrival: Ambulatory ph 08:24 Chief complaint: Patient states: "I was seen about two weeks ago for a rash on my vg1 buttocks and was told to come back if it didn't clear up with the medicine they gave me" Pt states rash is sore and red, stated pain of 7/10. Coronavirus screen: Vaccine status: Patient reports being unvaccinated. Client denies travel out of the [place] in the last 14 days. 08:24 Acuity: JESSY 4 vg1 Triage Assessment: 08:24 General: Appears in no apparent distress. comfortable, Behavior is calm, cooperative. vg1 Pain: Complains of pain in buttocks Pain currently is 7 out of 10 on a pain scale. Historical: - Allergies: 08:21 Codeine; ph - Immunization history:: Client reports having NOT received the Covid vaccine. - Social history:: Smoking status: Patient reports the use of cigarette tobacco products, smokes one-half pack cigarettes per day. Screenin:20 Abuse screen: Denies threats or abuse. Denies injuries from another. Nutritional ph screening: No deficits noted. Tuberculosis screening: No symptoms or risk factors identified. Fall Risk None identified. Assessment: 08:30 General: SEE TRIAGE NOTE. bp 08:36 Reassessment: PT D/C HOME AMBULATORY, DX WITH TINEA CORPORIS. bp Vital Signs: 08:24 BP 113 / 80; Pulse 80; Resp 16; Temp 99.3(O); Pulse Ox 98% on R/A; Pain 7/10; vg1 ED Course: 08:15 Patient arrived in ED. as 08:19 Bonny Giles, RN is Primary Nurse. ph 08:20 Humberto Leger, KRISTINE is PHCP. pm1 08:20 Jr King MD is Attending Physician. pm1 08:20 Patient has correct armband on for positive identification. Bed in low position. Call ph light in reach. Pulse ox on. NIBP on. Door closed. Noise minimized. 08:21 Jr King MD is Attending Physician. pm1 08:22 Arm band placed on Patient placed in an exam room, on a stretcher, on pulse oximetry. ph 08:25 Triage completed. vg1 08:36 No provider procedures requiring assistance completed. Patient did not have IV access bp during this emergency room visit. Administered Medications: No medications were administered Outcome: 08:30 Discharge ordered by MD. pm1 08:36 Discharged to home ambulatory, with family. bp 08:36 Condition: stable 08:36 Discharge instructions given to patient, Instructed on discharge instructions, follow up and referral plans. Demonstrated understanding of instructions, follow-up care. 08:50 Patient left the ED. bp Signatures: Vanessa Ayala as Bonny Giles, RN RN Humberto Leger NP [employer] pm1 Nate Martinez RN RN bp Eve Billings RN RN vg1 Corrections: (The following items were deleted from the chart) 08:37 08:36 Discharge instructions given to patient, Instructed on discharge instructions, bp follow up and referral plans. medication usage, bp
--- NOTE | 2021-10-31 08:30 | EDPHYS ---
Physician Documentation [facility] Name: Juvencio Iyer III Age: 56 yrs Sex: Male : 1965 Arrival Date: 10/31/2021 Time: 08:15 Bed 6 Private MD: ED Physician Jr King HPI: 10/31 08:27 This 56 yrs old Male presents to ER via Ambulatory with complaints of Rash. pm1 08:27 The patient's rash thought to be caused by wet clothing. The rash is located on the pm1 coccyx and buttocks. The rash can be described as patchy, red. Onset: The symptoms/episode began/occurred 2.5 week(s) ago. Associated signs and symptoms: Pertinent positives: itching, Pertinent negatives: fever. Severity of symptoms: in the emergency department the symptoms are unchanged. Treatment given at home: none. The patient has not experienced similar symptoms in the past. 56-year-old male presented to the ER with complaints of rash for 2 and half weeks to his coccyx buttocks area. He was seen here 2 weeks ago and given a prescription for an antifungal topical agent and a antibiotic by mouth for the same rash and a spider bite to his right lower leg. Spider bite to right lower leg has resolved with medication but his rash to his coccyx and buttock area has continued. Patient reports onset of his rash due to having to place wet underwear on when his dryer was not working. 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 Patient reports topical medication worked for the first week, it was improving the rash but then it stopped working. Patient is here for stronger topical treatment. Historical: - Allergies: 08:21 Codeine; ph - Immunization history:: Client reports having NOT received the Covid vaccine. - Social history:: Smoking status: Patient reports the use of cigarette tobacco products, smokes one-half pack cigarettes per day. ROS: 08:27 Constitutional: Negative for fever, chills, and weight loss, Cardiovascular: Negative pm1 for chest pain, palpitations, and edema, Respiratory: Negative for shortness of breath, cough, wheezing, and pleuritic chest pain, Abdomen/GI: Negative for abdominal pain, nausea, vomiting, diarrhea, and constipation, MS/Extremity: Negative for injury and deformity. 08:27 Neuro: Negative for headache, weakness, numbness, tingling, and seizure. 08:27 Skin: Positive for rash, of the coccyx and buttocks. 08:27 All other systems are negative. Exam: 08:27 Constitutional: This is a well developed, well nourished patient who is awake, alert, pm1 and in no acute distress. Head/Face: Normocephalic, atraumatic. 08:27 Cardiovascular: Exam negative for acute changes, Rate: normal, Rhythm: regular, Pulses: no pulse deficits are appreciated. 08:27 Respiratory: Exam negative for acute changes, respiratory distress, shortness of breath. 08:27 Skin: Appearance: normal except for affected area, abscess, not appreciated, cellulitis, is not appreciated, consistent with tinea corporis, on the buttocks and coccyx. 08:27 Neuro: Exam negative for acute changes, Orientation: is normal, Mentation: is normal, Motor: moves all fours, Gait: is steady, at a normal pace, without difficulty. Vital Signs: 08:24 BP 113 / 80; Pulse 80; Resp 16; Temp 99.3(O); Pulse Ox 98% on R/A; Pain 7/10; vg1 MDM: 08:21 Patient medically screened. pm1 08:27 Data reviewed: vital signs. Data interpreted: Pulse oximetry: on room air is 98 %. pm1 Interpretation: normal. Counseling: I had a detailed discussion with the patient and/or guardian regarding: the historical points, exam findings, and any diagnostic results supporting the discharge/admit diagnosis, the need for outpatient follow up, to return to the emergency department if symptoms worsen or persist or if there are any questions or concerns that arise at home, Discussed hygiene improvements and need for keeping the area dry. Patient works 7 days a week as electrician bus and is sweating with area staying moist constantly. Discussed if no improvement with topical treatment he may need oral treatment to resolve his rash. Oral treatment will need to be initiated by dermatology or PCP for potential monitoring of blood work. Administered Medications: No medications were administered Disposition: 14:23 Co-signature as Attending Physician, Jr King MD. rn Disposition Summary: 10/31/21 08:30 Discharge Ordered Location: Home pm1 Problem: new pm1 Symptoms: are unchanged pm1 Condition: Stable pm1 Diagnosis - Tinea corporis pm1 Followup: pm1 - With: Emergency Department - When: As needed - Reason: Worsening of condition Followup: pm1 - With: Private Physician - When: 2 - 3 days - Reason: Recheck today's complaints, Continuance of care, Re-evaluation by your physician Discharge Instructions: - Discharge Summary Sheet pm1 - Rash, Adult pm1 Forms: - Medication Reconciliation Form pm1 - Thank You Letter pm1 - Antibiotic Education pm1 - Prescription Opioid Use pm1 Prescriptions: - terbinafine HCl 1 % Topical cream - apply 1 application by TOPICAL route once daily for 7 days; 1 tube; Refills: 0, pm1 Product Selection Permitted Signatures: Jr King MD MD rn Hall, Patricia, RN RN ph Marinas, Patrick, NP MACHINE INSTALLER pm1 Eve Billings RN RN vg1
[2021-10-31 08:57] VITALS: BP 113/80; TEMP 99.3; O2SAT 98
== END 2021-10-31 08:50 | disposition home or self-care (01) ==
LOC: ER 08:13
DX: B35.4 Tinea corporis (principal); F17.210 Nicotine dependence, cigarettes, uncomplicated; Z88.5 Allergy status to narcotic agent
CPT/HCPCS: 99283

== ENCOUNTER 2022-01-18 17:00 | Emergency (ER) | payer SELFPAY ==
[2022-01-18] MEDS ORDERED: ACETAMINOPHEN 500 MG TAB ONE (17:28)
--- NOTE | 2022-01-18 18:04 | RAD REPORT ---
EXAM DESCRIPTION: RAD - Chest Single View - 01/18/2022 5:54 pm CLINICAL HISTORY: COPD Chest pain. COMPARISON: Chest Pa And Lat (2 Views) dated 03/24/2019; Chest Pa And Lat (2 Views) dated 08/07/2017; CHEST SINGLE VIEW dated 04/11/2015 FINDINGS: Portable technique limits examination quality. The lungs are grossly clear. The heart is normal in size. No displaced fractures. IMPRESSION: No acute intrathoracic process suspected.
--- NOTE | 2022-01-18 18:51 | EDPHYS ---
Physician Documentation [facility] Name: Juvencio Iyer III Age: 56 yrs Sex: Male : 1965 Arrival Date: 01/18/2022 Time: 17:02 Bed DIS1 Private MD: ED Physician Damaso Abreu HPI: 01/18 17:29 This 56 yrs old Male presents to ER via Ambulatory with complaints of Headache, jr11 bodyaches, fatigue. 17:29 The patient describes the headache as aching. Onset: The symptoms/episode jr11 began/occurred 2 day(s) ago. Associated signs and symptoms: Pertinent positives: fever, malaise, rhinorrhea, congestion. Severity of symptoms: At its worst the pain was moderate, in the emergency department the pain is unchanged. Denies worse or thunderclap +sick contacts, no covid vax. Historical: - Allergies: 17:27 Codeine; jl7 - Home Meds: 17:27 None [Active]; jl7 - PMHx: 17:27 None; jl7 - PSHx: 17:27 None; jl7 - Immunization history:: Client reports having NOT received the Covid vaccine. - Social history:: Smoking status: Patient reports the use of cigarette tobacco products, smokes one-half pack cigarettes per day. ROS: 17:29 All other systems are negative. jr11 Exam: 17:29 Constitutional: This is a well developed, well nourished patient who is awake, alert, jr11 and in no acute distress. Head/Face: Normocephalic, atraumatic. Eyes: Extra-ocular motions intact. Lids and lashes normal. Conjunctiva and sclera are non-icteric and not injected. Cornea within normal limits. Periorbital areas with no swelling, redness, or edema. ENT: Nares patent. No nasal discharge, no septal abnormalities noted. Oropharynx with no redness, swelling, or masses, exudates, or evidence of obstruction, uvula midline. Mucous membranes moist. Neck: Trachea midline, no thyromegaly or masses palpated, and no cervical lymphadenopathy. Supple, full range of motion without nuchal rigidity, or vertebral point tenderness. No Meningismus. Chest/axilla: Normal chest wall appearance and motion. Nontender with no deformity. No lesions are appreciated. Cardiovascular: Regular rate and rhythm with a normal S1 and S2. No gallops, murmurs, or rubs. Normal PMI, no JVD. No pulse deficits. Respiratory: Lungs have equal breath sounds bilaterally, clear to auscultation and percussion. No rales, rhonchi or wheezes noted. No increased work of breathing, no retractions or nasal flaring. Abdomen/GI: Soft, non-tender, with normal bowel sounds. No distension or tympany. No guarding or rebound. No evidence of tenderness throughout. Back: No spinal tenderness. No costovertebral tenderness. Full range of motion. MS/ Extremity: Pulses equal, no cyanosis. Neurovascular intact. Full, normal range of motion. Vital Signs: 17:24 BP 103 / 76; Pulse 80; Resp 17; Temp 98.6; Pulse Ox 98% ; Weight 74.84 kg; Height 5 ft. jl7 9 in. (175.26 cm); Pain 7/10; 17:24 Body Mass Index 24.37 (74.84 kg, 175.26 cm) 7 MDM: 17:24 Patient medically screened. 11 17:29 Differential diagnosis: covid, viral syndrome. Data reviewed: vital signs, nurses jr11 notes. ED course: Patient is a 56-year-old male with rhinorrhea congestion body aches and diffuse headache. Denies worse or thunderclap no concern for subarachnoid bleed. Patient playing golf game on his cell phone. We will treat patient symptomatically, given that he is a smoker do a chest x-ray given that he has upper respiratory signs of viral infection. If he is COVID-positive, he has been symptomatic for 2 days, will give anti viral. 01/18 17:20 Order name: COVID-19 SARS RT PCR (Document "Date of Onset" if Symptomatic); Complete [facility] Time: 18:49 01/18 17:25 Order name: CXR XRAY; Complete Time: 18:04 [facility] Administered Medications: 17:30 Drug: Tylenol 1000 mg Route: PO; ld1 Disposition Summary: 01/18/22 18:50 Discharge Ordered Location: Home [facility] Condition: Stable [facility] Diagnosis - COVID 19 infection jr11 - Acute upper respiratory infection, unspecified jr11 Discharge Instructions: - Discharge Summary Sheet jr11 - COVID-19 Frequently Asked Questions jr11 - 10 Things You Can Do to Manage Your COVID-19 Symptoms at Home - [facility] jr11 Forms: - Work release form ds4 - Medication Reconciliation Form jr11 - Thank You Letter jr11 - Antibiotic Education jr11 - Prescription Opioid Use jr11 Prescriptions: - PAXLOVID - take 3 tablet by ORAL route every 12 hours; 30 tablet; Refills: 0, Product jr11 Selection Permitted - Ibuprofen 600 mg Oral Tablet - take 1 tablet by ORAL route every 6 hours As needed take with food; 30 tablet; jr11 Refills: 0, Product Selection Permitted Signatures: Dispatcher [employer] Bello Tolbert RN RN jl7 Precious Castellanos RN RN ld1 Damaso Abreu MD MD jr11
--- NOTE | 2022-01-18 18:51 | ER ---
Nurse's Notes [facility] Name: Juvencio Iyer III Age: 56 yrs Sex: Male : 1965 Arrival Date: 01/18/2022 Time: 17:02 Bed DIS1 Private MD: Diagnosis: COVID 19 infection;Acute upper respiratory infection, unspecified Presentation: 01/18 17:24 Chief complaint: Patient states: Fatigue, CHONG, body aches x 1 week. Coronavirus screen: jl Vaccine status: Patient reports being unvaccinated. fatigue, headache, muscle pain, Client presents with at least one sign or symptom that may indicate coronavirus-19. Standard/surgical mask placed on the client. Provider contacted for isolation considerations. Ebola Screen: No symptoms or risks identified at this time. Initial Sepsis Screen: Does the patient meet any 2 criteria? No. Patient's initial sepsis screen is negative. Does the patient have a suspected source of infection? No. Patient's initial sepsis screen is negative. Risk Assessment: Do you want to hurt yourself or someone else? Patient reports no desire to harm self or others. Onset of symptoms was January 11, 2022. 17:24 Method Of Arrival: Ambulatory [facility] 17:24 Acuity: JESSY 4 jl7 Triage Assessment: 17:27 Headache History: The patient has had previous headaches and this one is similar to jl7 previous episodes. General: Appears in no apparent distress. uncomfortable, Behavior is calm, cooperative, appropriate for age. Pain: Complains of pain in CHONG, body aches Pain currently is 7 out of 10 on a pain scale. Pain began gradually, Also complains of no other associated symptoms. Neuro: Level of Consciousness is awake, alert, obeys commands, Oriented to person, place, time, situation. Historical: - Allergies: 17:27 Codeine; jl7 - Home Meds: 17:27 None [Active]; jl7 - PMHx: 17:27 None; jl7 - PSHx: 17:27 None; jl7 - Immunization history:: Client reports having NOT received the Covid vaccine. - Social history:: Smoking status: Patient reports the use of cigarette tobacco products, smokes one-half pack cigarettes per day. Screenin:09 Abuse screen: Denies threats or abuse. Denies injuries from another. Nutritional jl7 screening: No deficits noted. Tuberculosis screening: No symptoms or risk factors identified. Fall Risk None identified. Vital Signs: 17:24 BP 103 / 76; Pulse 80; Resp 17; Temp 98.6; Pulse Ox 98% ; Weight 74.84 kg; Height 5 ft. jl7 9 in. (175.26 cm); Pain 7/10; 17:24 Body Mass Index 24.37 (74.84 kg, 175.26 cm) jl7 ED Course: 17:02 Patient arrived in ED. as 17:19 Damaso Abreu MD is Attending Physician. jr11 17:26 Triage completed. jl7 17:27 Arm band placed on right wrist. jl7 17:28 COVID swab sent to lab. jl7 17:30 Precious Castellanos, RN is Primary Nurse. ld1 17:31 COVID-19 SARS RT PCR (Document "Date of Onset" if Symptomatic) Sent. ld1 17:56 CXR XRAY In Process Unspecified. EDMS 19:09 Patient has correct armband on for positive identification. jl7 19:09 No provider procedures requiring assistance completed. Patient did not have IV access jl7 during this emergency room visit. Administered Medications: 17:30 Drug: Tylenol 1000 mg Route: PO; ld1 Medication: 19:09 VIS not applicable for this client. jl7 Outcome: 18:50 Discharge ordered by . jr11 19:09 Discharged to home ambulatory. jl7 19:09 Condition: stable 19:09 Discharge instructions given to patient, family, Instructed on discharge instructions, follow up and referral plans. medication usage, Demonstrated understanding of instructions, follow-up care, medications, Prescriptions given X 2. 19:10 Patient left the ED. jl7 Signatures: Dispatcher [employer] EDMS Vanessa Ayala Jahala RN RN jl7 Precious Castellanos, RUFINA RN ld1 Damaso Abreu MD MD jr11
[2022-01-18 19:14] VITALS: BP 103/76; TEMP 98.6; O2SAT 98
== END 2022-01-18 19:10 | disposition home or self-care (01) ==
LOC: ER 17:00
DX: U07.1 COVID-19 (principal); J06.9 Acute upper respiratory infection, unspecified; F17.210 Nicotine dependence, cigarettes, uncomplicated; Z88.5 Allergy status to narcotic agent
CPT/HCPCS: 71045; 99284; U0003

== ENCOUNTER 2022-11-02 11:00 | Emergency (ER) | payer SELFPAY ==
--- NOTE | 2022-11-02 11:44 | RAD REPORT ---
EXAM DESCRIPTION: [facility] Pa And Lat (2 Views)11/02/2022 11:32 am CLINICAL HISTORY: Cough;Congestion COMPARISON: Chest Single View dated 01/18/2022; Chest Pa And Lat (2 Views) dated 03/24/2019; Chest Pa And Lat (2 Views) dated 08/07/2017; CHEST SINGLE VIEW dated 04/11/2015 TECHNIQUE: PA and lateral views of the chest. FINDINGS: The lungs are clear. No pneumothorax or effusion. The cardiomediastinal contours are unrem arkable. IMPRESSION: No acute cardiopulmonary process.
--- NOTE | 2022-11-02 12:55 | ER ---
Nurse's Notes [facility] Name: Juvencio Iyer III Age: 57 yrs Sex: Male : 1965 Arrival Date: 11/02/2022 Time: 11:00 Bed IW1 Private MD: Diagnosis: Acute upper respiratory infection, unspecified;Diarrhea, unspecified Presentation: 11/02 11:14 Chief complaint: Patient states: Saturday morning - weak, fatigue, malaise, diarrhea, ld1 fever, no energy, vomiting, cough, congestion. Coronavirus screen: At this time, the client does not indicate any symptoms associated with coronavirus-19. Ebola Screen: No symptoms or risks identified at this time. Initial Sepsis Screen: Does the patient meet any 2 criteria? No. Patient's initial sepsis screen is negative. Does the patient have a suspected source of infection? No. Patient's initial sepsis screen is negative. Risk Assessment: Do you want to hurt yourself or someone else? Patient reports no desire to harm self or others. Onset of symptoms was November 02, 2022. 11:14 Method Of Arrival: Ambulatory ld1 11:14 Acuity: JESSY 3 ld1 Triage Assessment: 11:14 General: Appears in no apparent distress. comfortable, Behavior is calm, cooperative, ld1 appropriate for age. Pain: Denies pain. EENT: No signs and/or symptoms were reported regarding the EENT system. Neuro: Level of Consciousness is awake, alert, obeys commands, Oriented to person, place, time, situation. Neuro: Reports weakness. Cardiovascular: Capillary refill < 3 seconds Patient's skin is warm and dry. Respiratory: Airway is patent Respiratory effort is even, unlabored. GI: Abdomen is flat, non-distended, Reports diarrhea. : No signs and/or symptoms were reported regarding the genitourinary system. Derm: No signs and/or symptoms reported regarding the dermatologic system. Musculoskeletal: No signs and/or symptoms reported regarding the musculoskeletal system. Historical: - Allergies: 11:14 Codeine; ld1 - Home Meds: 11:14 None [Active]; ld1 - PMHx: 11:14 None; ld1 - PSHx: 11:14 None; ld1 - Immunization history:: Adult Immunizations up to date, Client reports having NOT received the Covid vaccine. - Social history:: Smoking status: Patient reports the use of cigarette tobacco products, smokes one-half pack cigarettes per day, Patient/guardian denies using alcohol. Screenin:26 [facility] ED Fall Risk Assessment (Adult) History of falling in the last 3 months, ld1 including since admission. Abuse screen: Denies threats or abuse. Denies injuries from another. Nutritional screening: No deficits noted. Tuberculosis screening: No symptoms or risk factors identified. Vital Signs: 11:14 BP 123 / 91; Pulse 88; Resp 18; Temp 99(O); Pulse Ox 99% on R/A; Weight 77.11 kg; ld1 Height 5 ft. 10 in. ; Pain 0/10; 11:14 Body Mass Index 24.39 (77.11 kg, 177.8 cm) ld1 11:14 Pain Scale: Adult ld1 ED Course: 11:03 Patient arrived in ED. mr 11:08 Noris Dixon FNP-C is PHCP. jamia 11:08 Rhett Ortiz DO is Attending Physician. kb 11:14 Arm band placed on right wrist. ld1 11:16 Triage completed. ld1 11:33 Chest Pa And Lat (2 Views) XRAY In Process Unspecified. EDMS 12:00 COVID swab sent to lab. Flu and/or RSV swab sent to lab. baldo 13:26 Patient has correct armband on for positive identification. Placed in gown. Bed in low ld1 position. Call light in reach. Side rails up X2. quality assurance monitor body on. Pulse ox on. NIBP on. Door closed. Noise minimized. Warm blanket given. 13:26 No provider procedures requiring assistance completed. IV discontinued. ld1 Administered Medications: No medications were administered Outcome: 12:55 Discharge ordered by MD. kb 13:26 Discharged to home ambulatory. ld1 13:26 Condition: stable 13:26 Discharge instructions given to patient, Instructed on discharge instructions, follow up and referral plans. Demonstrated understanding of instructions, follow-up care. 13:27 Patient left the ED. ld1 Signatures: Dispatcher [employer] EDMS Noris Dixon FNP-C FNP-Ckb RiveraMone LiuBello RN RN jl7 Precious Ortiz RN RN ld1
--- NOTE | 2022-11-02 12:55 | EDPHYS ---
Physician Documentation [facility] Name: Juvencio Iyer III Age: 57 yrs Sex: Male : 1965 Arrival Date: 11/02/2022 Time: 11:00 Bed IW1 Private MD: ED Physician Rhett Ortiz HPI: 11/02 13:22 This 57 yrs old Male presents to ER via Ambulatory with complaints of Fever, Diarrhea, kb fatigue. 13:23 The patient or guardian reports cough, that is intermittent, described as mild. Onset: kb The symptoms/episode began/occurred 4 day(s) ago. Severity of symptoms: At their worst the symptoms were moderate, in the emergency department the symptoms are unchanged. Modifying factors: The symptoms are alleviated by nothing, the symptoms are aggravated by nothing. Associated signs and symptoms: Pertinent positives: diarrhea, fever. The patient has not experienced similar symptoms in the past. The patient has not recently seen a physician. Patient reports he woke up Saturday morning feeling weak, fatigued, lacking energy with diarrhea, cough, congestion, subjective fever. Patient denies nausea, vomiting, abdominal pain. States his was diagnosed with pneumonia last week and was put on antibiotics so he came appear because he believes he needs antibiotics as well.. Historical: - Allergies: 11:14 Codeine; ld1 - Home Meds: 11:14 None [Active]; ld1 - PMHx: 11:14 None; ld1 - PSHx: 11:14 None; ld1 - Immunization history:: Adult Immunizations up to date, Client reports having NOT received the Covid vaccine. - Social history:: Smoking status: Patient reports the use of cigarette tobacco products, smokes one-half pack cigarettes per day, Patient/guardian denies using alcohol. ROS: 13:19 Cardiovascular: Negative for chest pain, palpitations, and edema. kb 13:19 Constitutional: Positive for chills, fatigue, malaise. 13:19 Respiratory: Positive for cough. 13:19 Abdomen/GI: Positive for diarrhea, Negative for abdominal pain, nausea and vomiting. 13:19 All other systems are negative. Exam: 13:19 Constitutional: This is a well developed, well nourished patient who is awake, alert, kb and in no acute distress. Head/Face: Normocephalic, atraumatic. ENT: Moist Mucous membranes Cardiovascular: Regular rate and rhythm with a normal S1 and S2. No gallops, murmurs, or rubs. No pulse deficits. Respiratory: Respirations even and unlabored. No increased work of breathing. Talking in full sentences Abdomen/GI: Soft, non-tender. No distention Skin: Warm, dry with normal turgor. Normal color. MS/ Extremity: Pulses equal, no cyanosis. Neurovascular intact. Full, normal range of motion. Neuro: Awake and alert, GCS 15, oriented to person, place, time, and situation. Moves all extremities. Normal gait. Vital Signs: 11:14 BP 123 / 91; Pulse 88; Resp 18; Temp 99(O); Pulse Ox 99% on R/A; Weight 77.11 kg; ld1 Height 5 ft. 10 in. ; Pain 0/10; 11:14 Body Mass Index 24.39 (77.11 kg, 177.8 cm) ld1 11:14 Pain Scale: Adult ld1 MDM: 11:08 Patient medically screened. kb 13:20 Differential diagnosis: flu, covid, uri, pneumonia, diarrhea. Data reviewed: vital kb signs, nurses notes. I considered the following discharge prescriptions or medication management in the emergency department Antibiotics: At this time antibiotics are not recommended. Test considered but Not performed: Labs: cbc, cmp and urinalysis considered, but pt refuses those tests. States he doesn't need them. Counseling: I had a detailed discussion with the patient and/or guardian regarding: the historical points, exam findings, and any diagnostic results supporting the discharge/admit diagnosis, lab results, the need for outpatient follow up, a family practitioner, to return to the emergency department if symptoms worsen or persist or if there are any questions or concerns that arise at home. ED course: Pt reports he has a virus and came in to get antibiotics. States his was diagnosed with pneumonia and got antibiotics last week. . 11/02 11:19 Order name: Flu; Complete Time: 12:31 kb 11/02 11:19 Order name: SARS-COV-2 RT PCR; Complete Time: 12:47 kb 11/02 11:19 Order name: Chest Pa And Lat (2 Views) XRAY; Complete Time: 12:18 kb Administered Medications: No medications were administered Disposition: 19:32 Co-signature as Attending Physician, Rhett Ortiz DO I was immediately available on-site ms3 in the Emergency Department for consultation in the care of the patient. Disposition Summary: 11/02/22 12:55 Discharge Ordered Location: Home kb Condition: Stable kb Diagnosis - Acute upper respiratory infection, unspecified kb - Diarrhea, unspecified kb Followup: kb - With: Emergency Department - When: As needed - Reason: Worsening of condition Followup: kb - With: Private Physician - When: 2 - 3 days - Reason: Recheck today's complaints, Continuance of care, Re-evaluation by your physician Discharge Instructions: - Discharge Summary Sheet kb - Food Choices to Help Relieve Diarrhea, Adult kb - Viral Illness, Adult kb Forms: - Work release form kb - Medication Reconciliation Form kb - Thank You Letter kb - Antibiotic Education kb - Prescription Opioid Use kb Signatures: Dispatcher [employer] EDNoris Roper, OPERATING ROOM AIDE-C OPERATING ROOM AIDE-Rhett Aguilar DO DO ms3 Precious Ortiz, RN RN ld1
[2022-11-02 13:53] VITALS: BP 123/91; TEMP 99; O2SAT 99
== END 2022-11-02 13:27 | disposition home or self-care (01) ==
LOC: ER 11:00
DX: J06.9 Acute upper respiratory infection, unspecified (principal); R19.7 Diarrhea, unspecified; Z20.822 Contact with and (suspected) exposure to COVID-19
CPT/HCPCS: 71046; 87804; U0003

== ENCOUNTER 2023-02-26 09:20 | Emergency (ER) | payer SELFPAY ==
[2023-02-26 10:13] LABS: SARS-CoV-2 Antigen Rapid Res Negative (Negative)
--- NOTE | 2023-02-26 10:47 | ER ---
Nurse's Notes [facility] Name: Juvencio Iyer III Age: 58 yrs Sex: Male : 1965 Arrival Date: 02/26/2023 Time: 09:20 Bed 24 Private MD: Diagnosis: Acute upper respiratory infection, unspecified;Cellulitis of face Presentation: 02/26 09:25 Chief complaint: Chief complaint: Patient states: I got bit by a spider on left inner iw eyelid, my sinus was swollen, not feeling good. 09:28 Coronavirus screen: Client presents with at least one sign or symptom that may indicate iw coronavirus-19. Ebola Screen: Patient negative for fever greater than or equal to 101.5 degrees Fahrenheit, and additional compatible Ebola Virus Disease symptoms Patient denies exposure to infectious person. Patient denies travel to an Ebola-affected area in the 21 days before illness onset. No symptoms or risks identified at this time. Initial Sepsis Screen: Does the patient meet any 2 criteria? No. Patient's initial sepsis screen is negative. Does the patient have a suspected source of infection? No. Patient's initial sepsis screen is negative. Risk Assessment: Do you want to hurt yourself or someone else? Patient reports no desire to harm self or others. Onset of symptoms was February 22, 2023. 09:28 Method Of Arrival: Ambulatory iw 09:28 Acuity: JESSY 4 iw Triage Assessment: 10:24 Bite description: by. pascual Historical: - Allergies: 09:30 Codeine; iw - Immunization history:: Adult Immunizations unknown. - Social history:: Smoking status: unknown. Screenin:40 [facility] ED Fall Risk Assessment (Adult) Score/Fall Risk Level 0 - 2 = Low Risk nj1 Oriented to surroundings, Maintained a safe environment, Hourly rounding (assess needs \T\ fall precautionary measures) done. Abuse screen: Denies threats or abuse. Denies injuries from another. Nutritional screening: No deficits noted. Tuberculosis screening: No symptoms or risk factors identified. Assessment: 09:40 General: Appears in no apparent distress. comfortable, Behavior is calm, cooperative, nj1 appropriate for age. 09:40 Pain: Denies pain. Neuro: Level of Consciousness is awake, alert, obeys commands, nj1 Oriented to person, place, time, situation. Cardiovascular: Patient's skin is warm and dry. Respiratory: Airway is patent Respiratory effort is even, unlabored. 09:40 Derm: Skin has lesions on Noted to outer aspect of eye. Skin is pink, warm \T\ dry. nj1 Vital Signs: 09:30 BP 121 / 93; Pulse 77; Resp 18; Temp 97.4; Pulse Ox 99% on R/A; Weight 74.84 kg; Height iw 5 ft. 9 in. ; Pain 8/10; 11:08 BP 114 / 97; Pulse 65; Resp 18; Temp 97.7(O); Pulse Ox 98% on R/A; nj1 09:30 Body Mass Index 24.37 (74.84 kg, 175.26 cm) iw 09:30 Pain Scale: Adult ED Course: 09:23 Patient arrived in ED. rg4 09:28 Farzad Bartholomew MD is Attending Physician. [facility] 09:30 Triage completed. iw 09:30 Arm band placed on. iw 09:31 Dal[facility] Moreno [facility]C [facility] sb4 09:34 Charlee Arizmendi, RN is Primary Nurse. nj1 09:40 Patient has correct armband on for positive identification. Call light in reach. Adult nj1 w/ patient. Provided Education on: call light. 11:26 No provider procedures requiring assistance completed. Patient did not have IV access nj1 during this emergency room visit. Administered Medications: 11:04 Drug: Dexamethasone IM 10 mg Route: IM; Site: left gluteus; nj1 11:26 Follow up: Response: No adverse reaction nj1 Medication: 11:26 VIS not applicable for this client. nj1 Outcome: 10:46 Discharge ordered by . [facility] 11:26 Discharged to home nj1 11:26 Condition: stable 11:26 Discharge instructions given to patient, Instructed on discharge instructions, follow up and referral plans. medication usage, Demonstrated understanding of instructions, follow-up care, medications, Prescriptions given X 1. 11:26 Patient left the ED. nj1 Signatures: Farzad Bartholomew MD MD cha Williams, Irene, RN RN Pema Billings rg4 Dalila Moreno PA-C PA-C sb4 Charlee Arizmendi, RUFINA RN nj1 Corrections: (The following items were deleted from the chart) 09:30 09:25 Chief complaint: iw iw 10:23 09:40 General: Appears in no apparent distress. comfortable, Behavior is calm, nj1 cooperative, appropriate for age, nj1
--- NOTE | 2023-02-26 10:47 | EDPHYS ---
Physician Documentation [facility] Name: Juvencio Iyer III Age: 58 yrs Sex: Male : 1965 Arrival Date: 02/26/2023 Time: 09:20 Bed 24 Private MD: ED Physician Farzad Bartholomew HPI: 02/26 09:43 This 58 yrs old Male presents to ER via Ambulatory with complaints of Insect Bite, Flu sb4 Symptoms. 09:43 patient comes in with multiple complaints- states he was feeling dehydrated last week, sb4 believes he was bit by a spider on his left outer eyelid, has FLS- sinus congestion, headache, runny nose, cough. he states that his sinuses were "enlarged" last week. his partner is experiencing similar symptoms. Historical: - Allergies: 09:30 Codeine; iw - Immunization history:: Adult Immunizations unknown. - Social history:: Smoking status: unknown. ROS: 09:43 Constitutional: Positive for malaise, Negative for chills. sb4 09:43 ENT: Positive for rhinorrhea, sinus congestion, sinus pain. 09:43 Respiratory: Positive for cough, shortness of breath. 09:43 Skin: Positive for insect bite. 09:43 All other systems are negative. 11:03 Cardiovascular: Negative for chest pain, palpitations, and edema. sb4 Exam: 09:43 Constitutional: This is a well developed, well nourished patient who is awake, alert, sb4 and in no acute distress. Head/Face: Normocephalic, atraumatic. Eyes: Extra-ocular motions intact. Periorbital areas with no swelling, redness, or edema. ENT: Mucous membranes moist. Cardiovascular: Regular rate and rhythm with a normal S1 and S2. Respiratory: Lungs have equal breath sounds bilaterally, clear to auscultation and percussion. No rales, rhonchi or wheezes noted. No increased work of breathing, no retractions or nasal flaring. Abdomen/GI: Soft, non-tender, no distension. MS/ Extremity: Pulses equal, no cyanosis. Neurovascular intact. Full, normal range of motion. 09:43 Skin: injury, bite(s), of the lateral canthus of left eye. Vital Signs: 09:30 BP 121 / 93; Pulse 77; Resp 18; Temp 97.4; Pulse Ox 99% on R/A; Weight 74.84 kg; Height iw 5 ft. 9 in. ; Pain 8/10; 11:08 BP 114 / 97; Pulse 65; Resp 18; Temp 97.7(O); Pulse Ox 98% on R/A; nj1 09:30 Body Mass Index 24.37 (74.84 kg, 175.26 cm) iw 09:30 Pain Scale: Adult iw MDM: 09:28 Patient medically screened. rosamaria 09:47 Differential diagnosis: covid, flu, URI, sinusitis, abscess, cellulitis . sb4 10:43 Data reviewed: vital signs, nurses notes, lab test result(s), and as a result, I will sb4 discharge patient. Test considered but Not performed: Labs: not indicated, stable vitals, nontoxic. Historians other than the Patient: Spouse/Significant Other: significant other. Care significantly affected by the following chronic conditions: tobacco abuse. Counseling: I had a detailed discussion with the patient and/or guardian regarding the historical points, exam findings, and any diagnostic results supporting the discharge/admit diagnosis, the presence of at least one elevated blood pressure reading (>120/80) during this emergency department visit, lab results, to return to the emergency department if symptoms worsen or persist or if there are any questions or concerns that arise at home, smoking cessation. 02/26 09:32 Order name: SARS RAPID; Complete Time: 10:13 sb4 02/26 09:32 Order name: Flu; Complete Time: 10:26 sb4 Administered Medications: 11:04 Drug: Dexamethasone IM 10 mg Route: IM; Site: left gluteus; nj1 11:26 Follow up: Response: No adverse reaction nj1 Disposition Summary: 02/26/23 10:46 Discharge Ordered Location: Home sb4 Problem: an ongoing problem sb4 Symptoms: are unchanged sb4 Condition: Stable sb4 Diagnosis - Acute upper respiratory infection, unspecified sb4 - Cellulitis of face sb4 Followup: sb4 - With: Private Physician - When: As needed - Reason: Recheck today's complaints, Continuance of care, Re-evaluation by your physician Discharge Instructions: - Discharge Summary Sheet sb4 - Insect Bite, Adult, [id number] sb4 - Upper Respiratory Infection, Adult, [id number] sb4 Forms: - Work release form sb4 - Medication Reconciliation Form sb4 - Thank You Letter sb4 - Antibiotic Education sb4 - Prescription Opioid Use sb4 - Patient Portal Instructions sb4 - Leadership Thank You Letter sb4 Prescriptions: - Doxycycline Hyclate 100 mg Oral Tablet - take 1 tablet by ORAL route every 12 hours; 20 tablet; Refills: 0, Product sb4 Selection Permitted Signatures: Dispatcher [employer] EDFarzad Merino MD MD cha Williams, Irene, RN Dalila Burciaga PA-C PA-C sb4 Charlee Arizmendi RN RN nj1 Corrections: (The following items were deleted from the chart) 09:47 09:43 patient comes in with multiple complaints- states he was feeling dehydrated last sb4 week, believes he was bit by a spider on his right outer eyelid, has FLS- sinus congestion, headache, runny nose, cough. he states that his sinuses were "enlarged" last week. his partner is experiencing similar symptoms. sb4
[2023-02-26] MEDS ORDERED: dexAMETHasone 10 MG/ML VIAL ONE (11:05)
[2023-02-26 11:36] VITALS: BP 114/97; TEMP 97.7; O2SAT 98
== END 2023-02-26 11:26 | disposition home or self-care (01) ==
LOC: ER 09:20
DX: J06.9 Acute upper respiratory infection, unspecified (principal); L03.211 Cellulitis of face; Z20.822 Contact with and (suspected) exposure to COVID-19
CPT/HCPCS: 36415; 87804; 87811; 96372; 99284; J1100

== ENCOUNTER 2023-05-07 12:18 | Emergency (ER) | payer SELFPAY ==
[2023-05-07] MEDS ORDERED: SMZ./TMP. 800/160 MG TABLET ONE (13:02)
[2023-05-07] MEDS ORDERED: AZITHROMYCIN 250 MG TAB ONE (13:02)
[2023-05-07] MEDS ORDERED: MUPIROCIN 2% OINT 22GM TUBE TOP ONE (13:05)
--- NOTE | 2023-05-07 13:19 | RAD REPORT ---
EXAM DESCRIPTION: RAD - Chest Pa And Lat (2 Views) - 05/07/2023 1:11 pm CLINICAL HISTORY: COUGH Chest pain. COMPARISON: Chest Pa And Lat (2 Views) dated 11/02/2022; Chest Single View dated 01/18/2022; Chest Pa And Lat (2 Views) dated 03/24/2019; Chest Pa And Lat (2 Views) dated 08/07/2017 TECHNIQUE: PA and lateral views of the chest were obtained. FINDINGS: The lungs are hyperexpanded compatible with COPD. The heart is upper limit of normal in si ze. No fracture or aggressive bony process. IMPRESSION: COPD without acute process identified.
--- NOTE | 2023-05-07 13:54 | ER ---
Nurse's Notes [facility] [place] Name: Juvencio Iyer III Age: 58 yrs Sex: Male : 1965 Arrival Date: 05/07/2023 Time: 12:18 Bed 12 Private MD: Diagnosis: COPD/ Chronic obstructive pulmonary disease, unspecified;Cutaneous abscess of face-WITH MINIMAL CELLULITIS;Acute upper respiratory infection, unspecified;Tobacco abuse counseling;Tobacco use Presentation: 05/07 12:25 Chief complaint: Cough, pain with cough, runny noses, congestion, SOB, fatigue, hb headache, and nausea x 3-4 days. Vomit x 2 yesterday. Coronavirus screen: Client presents with at least one sign or symptom that may indicate coronavirus-19. Provider contacted for isolation considerations. Ebola Screen: No symptoms or risks identified at this time. Initial Sepsis Screen: Does the patient meet any 2 criteria? No. Patient's initial sepsis screen is negative. Does the patient have a suspected source of infection? No. Patient's initial sepsis screen is negative. Risk Assessment: Do you want to hurt yourself or someone else? Patient reports no desire to harm self or others. Onset of symptoms was May 04, 2023. 12:25 Method Of Arrival: Ambulatory hb 12:25 Acuity: JESSY 4 hb Historical: - Allergies: 12:28 Codeine; hb - Immunization history:: Adult Immunizations up to date. - Social history:: Smoking status: Patient reports the use of cigarette tobacco products. Screenin:04 [facility] ED Fall Risk Assessment (Adult) History of falling in the last 3 months, cp4 including since admission No falls in past 3 months (0 pts) Confusion or Disorientation No (0 pts) Intoxicated or Sedated No (0 pts) Impaired Gait No (0 pts) Mobility Assist Device Used No (0 pt) Altered Elimination No (0 pt) Score/Fall Risk Level 0 - 2 = Low Risk Oriented to surroundings, Maintained a safe environment, Educated pt \T\ family on fall prevention, incl call for assistance when getting out of bed, Hourly rounding (assess needs \T\ fall precautionary measures) done. Abuse screen: Denies threats or abuse. Nutritional screening: No deficits noted. Tuberculosis screening: No symptoms or risk factors identified. Assessment: 14:04 General: Appears in no apparent distress. Behavior is calm, cooperative, appropriate cp4 for age. Pain: Denies pain. Vital Signs: 12:25 BP 130 / 96; Pulse 78; Resp 18; Temp 98.3(O); Pulse Ox 100% on R/A; Weight 74.84 kg; hb Height 5 ft. 9 in. ; Pain 8/10; 14:06 BP 127 / 89; Pulse 81; Resp 18; Pulse Ox 99% ; cp4 12:25 Body Mass Index 24.37 (74.84 kg, 175.26 cm) hb 12:25 Pain Scale: Adult hb ED Course: 12:21 Patient arrived in ED. mg5 12:27 Triage completed. hb 12:28 Arm band placed on. hb 12:29 Farzad Bartholomew MD is Attending Physician. [facility] 12:46 Mai Smyth is Primary Nurse. cp4 13:02 Strep Sent. cp4 13:02 Flu Sent. cp4 13:12 Chest Pa And Lat (2 Views) XRAY In Process Unspecified. EDMS 13:52 Harjit Galdamez MD is Referral Physician. [facility] 13:52 Jayden Galdamez MD is Referral Physician. [facility] 13:52 Referral Physician role handed off by Harjit Galdamez MD [facility] 14:04 Bed in low position. Call light in reach. Side rails up X 1. Provided Education on: cp4 upper respiratory infection. 14:04 No provider procedures requiring assistance completed. Patient did not have IV access cp4 during this emergency room visit. Administered Medications: 13:02 Drug: Mupirocin Topical Ointment 2 % 1 application Topical once Route: Topical; Site: cp4 affected area; 13:33 Follow up: Response: No adverse reaction cp4 13:02 Drug: AZITHromycin PO 500 mg PO once Route: PO; cp4 13:33 Follow up: Response: No adverse reaction cp4 13:02 Drug: Trimethoprim-Sulfamethoxazole PO (160 mg-800 mg (DS) 1 tablet PO once Route: PO; cp4 13:33 Follow up: Response: No adverse reaction cp4 Medication: 14:04 VIS not applicable for this client. cp4 Outcome: 13:54 Discharge ordered by . rosamaria 14:04 Discharged to home ambulatory, cp4 14:04 Condition: stable 14:04 Discharge instructions given to patient, Instructed on discharge instructions, follow up and referral plans. medication usage, Demonstrated understanding of instructions, follow-up care, medications, Prescriptions given X 4, 14:07 Patient left the ED. cp4 Signatures: Dispatcher [employer] EDMS Farzad Bartholomew MD MD cha Baxter, Heather, RN RN hb [place], [place] mg5 Mai Smyth cp4 Corrections: (The following items were deleted from the chart) 13:09 13:02 SARS-COV-2 Antigen Rapid+I.LAB.BRZ drawn and sent. cp4 EDWI
--- NOTE | 2023-05-07 13:54 | EDPHYS ---
Physician Documentation [facility] Name: Juvencio Iyer III Age: 58 yrs Sex: Male : 1965 Arrival Date: 05/07/2023 Time: 12:18 Bed 12 Private MD: ED Physician Farzad Bartholomew HPI: 05/07 13:41 This 58 yrs old Male presents to ER via Ambulatory with complaints of Flu rosamaria Symptoms, Eye Problem. 13:47 Onset: The symptoms/episode began/occurred 3 day(s) ago. Duration: the symptoms are rosamaria continuous. Aggravated by. Historical: - Allergies: 12:28 Codeine; hb - Immunization history:: Adult Immunizations up to date. - Social history:: Smoking status: Patient reports the use of cigarette tobacco products. ROS: 13:49 Constitutional: Negative for fever, chills, and weight loss, Eyes: Negative for injury, rosamaria pain, redness, and discharge, ENT: Negative for injury, pain, and discharge, Neck: Negative for injury, pain, and swelling, Cardiovascular: Negative for chest pain, palpitations, and edema, Abdomen/GI: Negative for abdominal pain, nausea, vomiting, diarrhea, and constipation, Back: Negative for injury and pain, : Negative for injury, bleeding, discharge, and swelling, MS/Extremity: Negative for injury and deformity, Neuro: Negative for headache, weakness, numbness, tingling, and seizure, Psych: Negative for depression, anxiety, suicide ideation, homicidal ideation, and hallucinations, Allergy/Immunology: Negative for hives, rash, and allergies, Endocrine: Negative for neck swelling, polydipsia, polyuria, polyphagia, and marked weight changes, Hematologic/Lymphatic: Negative for swollen nodes, abnormal bleeding, and unusual bruising, 13:49 Respiratory: Positive for cough, "sounds productive", 13:49 Skin: Positive for erythema, swelling, Exam: 13:49 Constitutional: This is a well developed, well nourished patient who is awake, alert, rosamaria and in no acute distress. Head/Face: Normocephalic, atraumatic. Eyes: Pupils equal round and reactive to light, extra-ocular motions intact. Lids and lashes normal. Conjunctiva and sclera are non-icteric and not injected. Cornea within normal limits. Periorbital areas with no swelling, redness, or edema. ENT: Nares patent. No nasal discharge, no septal abnormalities noted. Tympanic membranes are normal and external auditory canals are clear. Oropharynx with no redness, swelling, or masses, exudates, or evidence of obstruction, uvula midline. Mucous membranes moist. Neck: Trachea midline, no thyromegaly or masses palpated, and no cervical lymphadenopathy. Supple, full range of motion without nuchal rigidity, or vertebral point tenderness. No Meningismus. Chest/axilla: Normal chest wall appearance and motion. Nontender with no deformity. No lesions are appreciated. Cardiovascular: Regular rate and rhythm with a normal S1 and S2. No gallops, murmurs, or rubs. Normal PMI, no JVD. No pulse deficits. Respiratory: Lungs have equal breath sounds bilaterally, clear to auscultation and percussion. No rales, rhonchi or wheezes noted. No increased work of breathing, no retractions or nasal flaring. Abdomen/GI: Soft, non-tender, with normal bowel sounds. No distension or tympany. No guarding or rebound. No evidence of tenderness throughout. Back: No spinal tenderness. No costovertebral tenderness. Full range of motion. Male : Normal genitalia with no discharge or lesions. MS/ Extremity: Pulses equal, no cyanosis. Neurovascular intact. Full, normal range of motion. Neuro: Awake and alert, GCS 15, oriented to person, place, time, and situation. Cranial nerves II-XII grossly intact. Motor strength 5/5 in all extremities. Sensory grossly intact. Cerebellar exam normal. Normal gait. Psych: Awake, alert, with orientation to person, place and time. Behavior, mood, and affect are within normal limits. 13:49 Skin: cellulitis, that is minimal, induration, that is mild is noted, located on the medial canthus of left eye, medial aspect of conjunctiva of left eye and left lower eyelid, Vital Signs: 12:25 BP 130 / 96; Pulse 78; Resp 18; Temp 98.3(O); Pulse Ox 100% on R/A; Weight 74.84 kg; hb Height 5 ft. 9 in. ; Pain 8/10; 14:06 BP 127 / 89; Pulse 81; Resp 18; Pulse Ox 99% ; cp4 12:25 Body Mass Index 24.37 (74.84 kg, 175.26 cm) hb 12:25 Pain Scale: Adult hb MDM: 12:29 Patient medically screened. [facility] 05/07 12:45 Order name: Flu; Complete Time: 13:41 [facility] 05/07 12:45 Order name: Strep; Complete Time: 13:41 [facility] 05/07 13:09 Order name: SARS-COV-2 RT PCR; Complete Time: 13:47 [facility] 05/07 13:27 Order name: Throat Culture [facility] 05/07 12:45 Order name: Chest Pa And Lat (2 Views) XRAY; Complete Time: 13:41 [facility] 05/07 12:45 Order name: PO challenge; Complete Time: 13:01 [facility] Administered Medications: 13:02 Drug: Mupirocin Topical Ointment 2 % 1 application Topical once Route: Topical; Site: cp4 affected area; 13:33 Follow up: Response: No adverse reaction cp4 13:02 Drug: AZITHromycin PO 500 mg PO once Route: PO; cp4 13:33 Follow up: Response: No adverse reaction cp4 13:02 Drug: Trimethoprim-Sulfamethoxazole PO (160 mg-800 mg (DS) 1 tablet PO once Route: PO; cp4 13:33 Follow up: Response: No adverse reaction cp4 Disposition Summary: 05/07/23 13:54 Discharge Ordered Notes: Location: Home rosamaria Problem: new rosamaria Symptoms: have improved rosamaria Condition: Stable rosamaria Diagnosis - COPD/ Chronic obstructive pulmonary disease, unspecified rosamaria - Cutaneous abscess of face - WITH MINIMAL CELLULITIS rosamaria - Acute upper respiratory infection, unspecified rosamaria - Tobacco abuse counseling rosamaria - Tobacco use rosamaria Followup: rosamaria - With: Private Physician - When: 2 - 3 days - Reason: Recheck today's complaints, Continuance of care, Re-evaluation by your physician Followup: rosamaria - With: Jayden Galdamez MD - When: 2 - 3 days - Reason: Recheck today's complaints, Re-evaluation by your physician Discharge Instructions: - Discharge Summary Sheet rosamaria - Skin Abscess rosamaria - Chronic Obstructive Pulmonary Disease rosamaria - Upper Respiratory Infection, Adult rosamaria - Cool Mist Vaporizer rosamaria - Chronic Obstructive Pulmonary Disease, [place] rosamaria - Upper Respiratory Infection, Adult, Kllm-sd-Hgha rosamaria - Cough, Adult rosamaria Forms: - Work release form rosamaria - Medication Reconciliation Form rosamaria - Thank You Letter rosamaria - Antibiotic Education rosamaria - Prescription Opioid Use rosamaria - Patient Portal Instructions rosamaria - Leadership Thank You Letter [facility] Prescriptions: - Centany 2 % Topical ointment - apply 1 application TOPICAL route 3 times per day; 15 gram tube; Refills: 0, [facility] Product Selection Permitted - Zithromax Z-Virgilio 250 mg Oral Tablet - take 1 tablet ORAL route as directed for 5 days Day 1 - take two (2) tablets rosamaria one time. Day 2, 3, 4 , 5 take one (1) tablet once daily.; 6 tablet; Refills: 0, Product Selection Permitted - Medrol (Virgilio) 4 mg Oral Tablets, Dose Pack - take 1 tablet ORAL route as directed - follow package instructions; 1 packet; rosamaria Refills: 0, Product Selection Permitted - Bactrim DS 800-160 mg Oral Tablet - take 1 tablet ORAL route every 12 hours for 10 days; 20 tablet; Refills: 0, [facility] Product Selection Permitted Signatures: Dispatcher [employer] EDFarzad Merino MD MD cha Baxter, Heather, RN RN Mai Romano cp4 Corrections: (The following items were deleted from the chart) 13:09 12:46 SARS-COV-2 Antigen Rapid+I.LAB.BRZ ordered. EDMS EDMS
[2023-05-07 14:11] VITALS: TEMP 98.3
[2023-05-07 14:12] VITALS: BP 127/89; O2SAT 99
== END 2023-05-07 14:07 | disposition home or self-care (01) ==
LOC: ER 12:18
DX: J06.9 Acute upper respiratory infection, unspecified (principal); J44.9 Chronic obstructive pulmonary disease, unspecified; L03.211 Cellulitis of face; Z72.0 Tobacco use; Z71.6 Tobacco abuse counseling; Z11.52 Encounter for screening for COVID-19
CPT/HCPCS: 36415; 71046; 87070; 87081; 87635; 87804; 99283

== ENCOUNTER 2023-12-06 18:14 | Emergency (ER) | payer OTHER, SELFPAY ==
[2023-12-06] MEDS ORDERED: LEVALBUTEROL 1.25 MG/3 ML NEB ONE (19:06)
[2023-12-06] MEDS ORDERED: IPRATROPIUM BROM 0.5MG/2.5ML ONE (19:06)
[2023-12-06] MEDS ORDERED: predniSONE 20 MG TAB ONE (19:06)
[2023-12-06] MEDS ORDERED: AZITHROMYCIN 250 MG TAB ONE (19:07)
[2023-12-06 19:16] LABS: SARS-CoV-2 Antigen CONTROL BLUE LINE VIS/BG OK; SARS-CoV-2 Antigen Rapid Res Negative (Negative)
--- NOTE | 2023-12-06 19:31 | ER ---
Nurse's Notes [facility] Name: Juvencio Iyer III Age: 58 yrs Sex: Male : 1965 Arrival Date: 12/06/2023 Time: 18:14 Bed 11 Private MD: Diagnosis: Tobacco abuse counseling;Tobacco use;Acute upper respiratory infection, unspecified Presentation: 12/05 18:35 Chief complaint: Patient states: cough, congestion, weakness. Coronavirus screen: At as6 this time, the client does not indicate any symptoms associated with coronavirus-19. Ebola Screen: No symptoms or risks identified at this time. Initial Sepsis Screen: Does the patient meet any 2 criteria? No. Patient's initial sepsis screen is negative. Does the patient have a suspected source of infection? No. Patient's initial sepsis screen is negative. Risk Assessment: Do you want to hurt yourself or someone else? Patient reports no desire to harm self or others. Onset of symptoms was November 30, 2023. 18:35 Method Of Arrival: Ambulatory as6 18:35 Acuity: JESSY 4 as6 Historical: - Allergies: 18:36 Codeine; as6 - PMHx: 18:36 None; as6 - PSHx: 18:36 None; as6 - Immunization history:: Adult Immunizations not up to date. - Infectious Disease History:: Denies. - Social history:: Smoking status: Patient reports the use of cigarette tobacco products, smokes one-half pack cigarettes per day. - Family history:: not pertinent. Screenin:39 [facility] ED Fall Risk Assessment (Adult) History of falling in the last 3 months, nj1 including since admission No falls in past 3 months (0 pts) Confusion or Disorientation No (0 pts) Intoxicated or Sedated No (0 pts) Impaired Gait No (0 pts) Mobility Assist Device Used No (0 pt) Altered Elimination No (0 pt) Score/Fall Risk Level 0 - 2 = Low Risk Oriented to surroundings, Maintained a safe environment, Hourly rounding (assess needs \T\ fall precautionary measures) done. Abuse screen: Denies threats or abuse. Denies injuries from another. Nutritional screening: No deficits noted. Tuberculosis screening: No symptoms or risk factors identified. Assessment: 19:32 General: Appears in no apparent distress. comfortable, Behavior is calm, cooperative, nj1 appropriate for age. Pain: Complains of pain in Generalized Pain currently is 8 out of 10 on a pain scale. Neuro: Level of Consciousness is awake, alert, obeys commands, Oriented to person, place, time, situation, Reports weakness Fatigue. Respiratory: Reports cough that is productive, Airway is patent Respiratory effort is even, unlabored. 19:55 Reassessment: Patient appears in no apparent distress at this time. Patient is alert, nj1 oriented x 3, equal unlabored respirations, skin warm/dry/pink. Vital Signs: 18:36 BP 109 / 88; Pulse 81; Resp 18 S; Temp 97.7(TE); Pulse Ox 97% on R/A; Weight 74.84 kg as6 (R); Height 5 ft. 9 in. (R); Pain 8/10; 19:55 BP 138 / 94; Pulse 82; Resp 18; Temp 97.7(TE); Pulse Ox 97% on R/A; nj1 18:36 Body Mass Index 24.37 (74.84 kg, 175.26 cm) as6 18:36 Pain Scale: Adult as6 ED Course: 18:18 Patient arrived in ED. mg5 18:19 Farzad Bartholomew MD is Attending Physician. rosamaria 18:36 Triage completed. as6 18:36 Arm band placed on. as6 19:08 Chest Pa And Lat (2 Views) XRAY In Process Unspecified. EDMS 19:39 Patient has correct armband on for positive identification. Bed in low position. Call nj1 light in reach. Provided Education on: call light, fall precautions. 19:54 Charlee Arizmendi, RUFINA is Primary Nurse. nj1 19:56 No provider procedures requiring assistance completed. Patient did not have IV access nj1 during this emergency room visit. Administered Medications: 19:16 Drug: predniSONE PO 60 mg PO once Route: PO; kb3 19:55 Follow up: Response: No adverse reaction nj1 19:16 Drug: Levalbuterol Inhalation 1.25 mg Inhalation once Route: Inhalation; kb3 19:55 Follow up: Response: No adverse reaction nj1 19:17 Drug: AZITHromycin PO 500 mg PO once Route: PO; kb3 19:56 Follow up: Response: No adverse reaction nj1 19:17 Drug: Levalbuterol Inhalation 1.25 mg Inhalation once Route: Inhalation; kb3 19:56 Follow up: Response: No adverse reaction nj1 19:17 Drug: Ipratropium Inhalation Aerosol 0.5 mg Inhalation once Route: Inhalation; 3 19:56 Follow up: Response: No adverse reaction nj1 Medication: 19:57 VIS not applicable for this client. nj1 Outcome: 19:31 Discharge ordered by . rosamaria 19:56 Discharged to home ambulatory, nj1 19:56 Condition: stable 19:56 Discharge instructions given to patient, Instructed on discharge instructions, follow up and referral plans. medication usage, Demonstrated understanding of instructions, follow-up care, medications, Prescriptions given X 4, 19:57 Patient left the ED. nj1 Signatures: Dispatcher [employer] EDMS Farzad Bartholomew MD MD cha Slawson, Ashby RN RN as6 Taryn Wolfe RN RN kb3 Charlee Arizmendi RN RN nj1 Sharon Wolfe mg5
--- NOTE | 2023-12-06 19:32 | EDPHYS ---
Physician Documentation [facility] Name: Juvencio Iyer III Age: 58 yrs Sex: Male : 1965 Arrival Date: 12/06/2023 Time: 18:14 Bed 11 Private MD: MANSI Physician Farzad Bartholomew HPI: 12/05 18:49 This 58 yrs old Male presents to ER via Ambulatory with complaints of Flu rosamaria Symptoms. 18:49 The patient presents to the emergency department with wheezing, Current therapy: None. rosamaria Onset: The symptoms/episode began/occurred 3 day(s) ago. Modifying factors: The symptoms are alleviated by cool environment, the symptoms are aggravated by cold weather, exertion. The patient or guardian reports airway noise, cough, difficulty breathing, flu symptoms, arthralgias, low-grade fever, myalgias. Severity of symptoms: At their worst the symptoms were moderate, in the emergency department the symptoms have improved, moderately. Associated signs and symptoms:. Severity of symptoms: At their worst the symptoms were mild moderate in the emergency department the symptoms have improved moderately. Associated signs and symptoms: Pertinent positives: rhinorrhea, sore throat. Historical: - Allergies: 18:36 Codeine; as6 - PMHx: 18:36 None; as6 - PSHx: 18:36 None; as6 - Immunization history:: Adult Immunizations not up to date. - Infectious Disease History:: Denies. - Social history:: Smoking status: Patient reports the use of cigarette tobacco products, smokes one-half pack cigarettes per day. - Family history:: not pertinent. ROS: 18:49 Constitutional: Negative for fever, chills, and weight loss, Eyes: Negative for injury, rosamaria pain, redness, and discharge, ENT: Negative for injury, pain, and discharge, Neck: Negative for injury, pain, and swelling, Cardiovascular: Negative for chest pain, palpitations, and edema, Abdomen/GI: Negative for abdominal pain, nausea, vomiting, diarrhea, and constipation, Back: Negative for injury and pain, : Negative for injury, bleeding, discharge, and swelling, MS/Extremity: Negative for injury and deformity, Skin: Negative for injury, rash, and discoloration, Neuro: Negative for headache, weakness, numbness, tingling, and seizure, Psych: Negative for depression, anxiety, suicide ideation, homicidal ideation, and hallucinations, Allergy/Immunology: Negative for hives, rash, and allergies, Endocrine: Negative for neck swelling, polydipsia, polyuria, polyphagia, and marked weight changes, Hematologic/Lymphatic: Negative for swollen nodes, abnormal bleeding, and unusual bruising, 18:49 Respiratory: Positive for cough, shortness of breath, wheezing, expiratory, Exam: 18:49 Constitutional: This is a well developed, well nourished patient who is awake, alert, rosamaria and in no acute distress. Head/Face: Normocephalic, atraumatic. Eyes: Pupils equal round and reactive to light, extra-ocular motions intact. Lids and lashes normal. Conjunctiva and sclera are non-icteric and not injected. Cornea within normal limits. Periorbital areas with no swelling, redness, or edema. ENT: Nares patent. No nasal discharge, no septal abnormalities noted. Tympanic membranes are normal and external auditory canals are clear. Oropharynx with no redness, swelling, or masses, exudates, or evidence of obstruction, uvula midline. Mucous membranes moist. Neck: Trachea midline, no thyromegaly or masses palpated, and no cervical lymphadenopathy. Supple, full range of motion without nuchal rigidity, or vertebral point tenderness. No Meningismus. Chest/axilla: Normal chest wall appearance and motion. Nontender with no deformity. No lesions are appreciated. Cardiovascular: Regular rate and rhythm with a normal S1 and S2. No gallops, murmurs, or rubs. Normal PMI, no JVD. No pulse deficits. Abdomen/GI: Soft, non-tender, with normal bowel sounds. No distension or tympany. No guarding or rebound. No evidence of tenderness throughout. Back: No spinal tenderness. No costovertebral tenderness. Full range of motion. Male : Normal genitalia with no discharge or lesions. Skin: Warm, dry with normal turgor. Normal color with no rashes, no lesions, and no evidence of cellulitis. MS/ Extremity: Pulses equal, no cyanosis. Neurovascular intact. Full, normal range of motion. Neuro: Awake and alert, GCS 15, oriented to person, place, time, and situation. Cranial nerves II-XII grossly intact. Motor strength 5/5 in all extremities. Sensory grossly intact. Cerebellar exam normal. Normal gait. Psych: Awake, alert, with orientation to person, place and time. Behavior, mood, and affect are within normal limits. 18:49 Respiratory: the patient does not display signs of respiratory distress, Respirations: normal, Breath sounds: bronchial sounds, that are mild, are scattered, decreased breath sounds, that are mild, are scattered, rhonchi, that are mild, stridor, that is mild, + upper airway congestion. Respiratory rate: 18 Vital Signs: 18:36 BP 109 / 88; Pulse 81; Resp 18 S; Temp 97.7(TE); Pulse Ox 97% on R/A; Weight 74.84 kg as6 (R); Height 5 ft. 9 in. (R); Pain 8/10; 19:55 BP 138 / 94; Pulse 82; Resp 18; Temp 97.7(TE); Pulse Ox 97% on R/A; nj1 18:36 Body Mass Index 24.37 (74.84 kg, 175.26 cm) as6 18:36 Pain Scale: Adult as6 MDM: 18:19 Patient medically screened. [facility] 18:53 Differential diagnosis: acute asthma, exercise-induced asthma, reactive airway. rosamaria Antibiotic administration: The patient is discharged and will get outpatient antibiotics, Zithromax. Differential Diagnosis: Obstructed Airway Bronchitis Influenza Upper Respiratory Infection Sinusitis Pharyngitis Asthma Exacerbation Viral Syndrome Pneumonia. Data reviewed: vital signs, nurses notes, lab test result(s), radiologic studies, plain films. Consideration of Admission/Observation Escalation of care including admission/observation considered. I considered the following discharge prescriptions or medication management in the emergency department Medications were administered in the Emergency Department. See MAR. Independent interpretation of the following test(s) in the Emergency Department X-Ray: My interpretation is cxr. Test considered but Not performed: Labs: no cbc, comp met. Historians other than the Patient: Spouse/Significant Other: well informed. 12/05 18:20 Order name: SARS RAPID; Complete Time: 19:30 [facility] 12/05 18:20 Order name: Flu; Complete Time: 19:30 [facility] 12/05 18:20 Order name: Strep; Complete Time: 19:30 [facility] 12/05 19:16 Order name: Throat Culture EDMA 12/05 18:41 Order name: Chest Pa And Lat (2 Views) XRAY rosamaria Administered Medications: 19:16 Drug: predniSONE PO 60 mg PO once Route: PO; kb3 19:55 Follow up: Response: No adverse reaction nj1 19:16 Drug: Levalbuterol Inhalation 1.25 mg Inhalation once Route: Inhalation; kb3 19:55 Follow up: Response: No adverse reaction nj1 19:17 Drug: AZITHromycin PO 500 mg PO once Route: PO; kb3 19:56 Follow up: Response: No adverse reaction nj1 19:17 Drug: Levalbuterol Inhalation 1.25 mg Inhalation once Route: Inhalation; kb3 19:56 Follow up: Response: No adverse reaction nj1 19:17 Drug: Ipratropium Inhalation Aerosol 0.5 mg Inhalation once Route: Inhalation; kb3 19:56 Follow up: Response: No adverse reaction nj1 Disposition Summary: 12/06/23 19:31 Discharge Ordered Notes: Location: Home rosamaria Problem: new rosamaria Symptoms: have improved rosamaria Condition: Stable rosamaria Diagnosis - Tobacco abuse counseling rosamaria - Tobacco use rosamaria - Acute upper respiratory infection, unspecified rosamaria Followup: rosamaria - With: Private Physician - When: 2 - 3 days - Reason: Recheck today's complaints, Continuance of care, Re-evaluation by your physician Discharge Instructions: - Discharge Summary Sheet rosamaria - Steps to Quit Smoking rosamaria - Health Risks of Smoking rosamaria - Upper Respiratory Infection, Adult rosamaria - Cool Mist Vaporizer rosamaria - Upper Respiratory Infection, Adult, [id number] rosamaria - Steps to Quit Smoking, Mphl-ty-[id number] rosamaria - Cough, Adult, Orxh-iz-[id number] rosamaria - Cough, Adult rosamaria Forms: - Medication Reconciliation Form rosamaria - Antibiotic Education rosamaria - Prescription Opioid Use rosamaria - Patient Portal Instructions [facility] - Leadership Thank You Letter [facility] Prescriptions: - albuterol sulfate 90 mcg/actuation Inhalation HFA Aerosol Inhaler - inhale 2 puff INHALATION route every 6 hours as needed for shortness of breath rosamaria or wheezing; 1 unit; Refills: 0, Product Selection Permitted - Tessalon Perles 100 mg Oral capsule - take 2 capsule ORAL route every 8 hours As needed; 30 capsule; Refills: 0, rosamaria Product Selection Permitted - Prednisone 20 mg Oral Tablet - take 2 tablets ORAL route once daily for 5 days; 10 tablet; Refills: 0, Product rosamaria Selection Permitted - Zithromax 500 mg Oral Tablet - take 1 tablet ORAL route once daily for 5 days; 5 tablet; Refills: 0, Product rosamaria Selection Permitted Signatures: Dispatcher [employer] Farzad Herring MD MD cha Slawson, Ashby RN RN as6 Taryn Wolfe RN RN kb3 Charlee Arizmendi RN nj1
--- NOTE | 2023-12-06 20:08 | RAD REPORT ---
EXAM DESCRIPTION: RAD - Chest Pa And Lat (2 Views) - 12/06/2023 7:07 pm CLINICAL HISTORY: COUGH COMPARISON: Chest Pa And Lat (2 Views) dated 05/07/2023; Chest Pa And Lat (2 Views) dated 11/02/2022; Chest Single View dated 01/18/2022; Chest Pa And Lat (2 Views) dated 03/24/2019 TECHNIQUE: PA and lateral views of the chest were obtained. FINDINGS: The lungs are clear. Heart size is normal and central vasculature is within normal limits. No pleural effusion or pneumothorax seen. No acute bony finding noted. IMPRESSION: No acute cardiopulmonary process.
[2023-12-06 20:14] VITALS: BP 138/94; TEMP 97.7; O2SAT 97
== END 2023-12-06 19:57 | disposition home or self-care (01) ==
LOC: ER 18:14
DX: J06.9 Acute upper respiratory infection, unspecified (principal); Z11.52 Encounter for screening for COVID-19; Z72.0 Tobacco use; Z71.6 Tobacco abuse counseling
CPT/HCPCS: 87070; 36415; 87081; 87804 ×2; 71046; 99284; 87811; J7512; J7614; J7644

== ENCOUNTER 2024-05-04 18:52 | Emergency (ER) | payer OTHER ==
--- OUTSIDE RECORDS SUMMARY | 2024-05-04 18:55 | XMS REPORT | Continuity of Care Document ---
Author Name Unknown Address 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 Ordering Clinician Indication Dosage Frequency Signature (SIG) Comments Components Source gabapentin 300 mg capsule 12-17 00:00: 00 Yes 1mg Ben Armenta triamcinolo ne acetonide 0.5 % topical cream 12-17 00:00: 00 Yes 1% Ben Armenta valacyclovi r 1 gram tablet 12-17 00:00: 00 Yes 1gram Ben Armenta Vital Signs Vital Name Observation Time Observation Value Comments S zeinab Heart Rate 2023-12-18 13:11:00 74.00 /min Beverly en Fadi Armenta Respiratory Rate 2023-12-18 13:11:00 18.00 /min Ben Armenta BP Systolic 2023-12-18 13:11:00 125 mm[Hg] Step hen F Geovany BP Diastolic 2023-12-18 13:11:00 80 mm[Hg] Roman Armenta Weight Measured 2023-12-18 13:11:00 151.00 pounds Ben Armenta Height Measured 2023-12-18 13:11:00 69.00 inches Ben Armenta Body Temperature 2023-12-18 13:11:00 98.10 degrees Ben Armenta Encounters Start Date/Time End Date/Time Encounter Type Admission Type Attending [facility] Facility Care Department Encounter ID Source 2023-12-18 13:11:10 2023-12-18 13:11:10 Outpatient [facility] [id number] Ben Armenta 2023-12-18 00:00:00 2023-12-18 00:00:00 Outpatient Visit [facility] [id number] Ben Armenta Results Test Description Test Time Test Comments Results Result Co mments Source Ben Armenta Notes Date/Time Note Provider Source Ben Armenta Formerly [facility]
--- NOTE | 2024-05-04 19:14 | EDPHYS ---
Physician Documentation [facility] Name: Juvencio Iyer III Age: 59 yrs Sex: Male : 1965 Arrival Date: 05/04/2024 Time: 18:52 Bed Waiting Private MD: ED Physician Esequiel Bryant HPI: 05/04 19:11 This 59 yrs old Male presents to ER via Ambulatory with complaints of dr5 Toothache. 19:11 The patient presents with broken tooth/teeth, pain, swelling. The problem is located in dr5 the lower left first bicuspid, lower left cuspid and lower left lateral incisor. 19:11 Onset: The symptoms/episode began/occurred last saturday. dr5 19:15 Patient is a 59-year-old male presenting with left lower facial pain swelling and dr5 dental pain. Patient denies fever. Patient reports he has a dental appointment this Saturday to have tooth removed, but thinks he needs antibiotics. Patient denies difficulty handling secretions.. Historical: - Allergies: 19:10 Codeine; cm10 - Home Meds: 19:10 None [Active]; cm10 - PMHx: 19:10 None; cm10 - PSHx: 19:10 None; cm10 - Immunization history:: Adult Immunizations up to date. - Infectious Disease History:: Denies. - Social history:: Smoking status: Patient reports the use of cigarette tobacco products, smokes one-half pack cigarettes per day. ROS: 19:15 Constitutional: as per hpi dr5 Exam: 19:15 Constitutional: This is a well developed, well nourished patient who is awake, alert, dr5 and in no acute distress. ENT: Nares patent. No nasal discharge, no septal abnormalities noted. Tympanic membranes are normal and external auditory canals are clear. Oropharynx with no redness, swelling, or masses, exudates, or evidence of obstruction, uvula midline. Mucous membranes moist. Neck: Trachea midline, no thyromegaly or masses palpated, and no cervical lymphadenopathy. Supple, full range of motion without nuchal rigidity, or vertebral point tenderness. No Meningismus. Cardiovascular: Regular rate and rhythm with a normal S1 and S2. Normal PMI, no JVD. No pulse deficits. Respiratory: Lungs have equal breath sounds bilaterally, clear to auscultation. No rales, rhonchi or wheezes noted. No increased work of breathing, no retractions or nasal flaring. Skin: Warm, dry with normal turgor. Normal color with no rashes, no lesions, and no evidence of cellulitis. Neuro: Awake and alert, GCS 15, oriented to person, place, time, and situation. Cranial nerves II-XII grossly intact. Motor strength 5/5 in all extremities. Sensory grossly intact. Cerebellar exam normal. Normal gait. 19:15 ENT: Mouth: abscess, that is minimal, of the lower left second bicuspid, lower left first bicuspid and lower left cuspid, No trismus. Speaking in full sentences., Vital Signs: 19:09 BP 117 / 80; Pulse 84; Resp 16; Temp 97.8(TE); Pulse Ox 99% on R/A; Pain 9/10; cm10 19:09 Pain Scale: Adult cm10 MDM: 18:58 Medical Screening Exam initiated dr5 19:17 Differential diagnosis: dental caries, dental abscess, pericoronitis. Data reviewed: dr5 vital signs, nurses notes. Consideration of Admission/Observation Escalation of care including admission/observation considered. Considered admission if patient had fever with abscess into buccal space.. Test considered but Not performed: CT: Considered CT if patient had abnormal VS or severe swelling to face with erythema.. Care significantly affected by the following Social Determinants of Health: Poor access to healthcare and/or lack of insurance, Poor access to transportation. Counseling: I had a detailed discussion with the patient and/or guardian regarding the historical points, exam findings, and any diagnostic results supporting the discharge/admit diagnosis, the need for outpatient follow up, for definitive care, a dentist, to return to the emergency department if symptoms worsen or persist or if there are any questions or concerns that arise at home. ED course: Will give patient amoxicillin and anti-inflammatories. Will have patient follow-up with dentist for further management. Return to ER if swelling worsens, develops fever, or pain is uncontrollable. Recommended taking Tylenol with Anaprox that was prescribed.. Administered Medications: No medications were administered Disposition Summary: 05/04/24 19:14 Discharge Ordered Notes: Location: Home dr5 Condition: Stable dr5 Diagnosis - Dental caries, unspecified dr5 Followup: dr5 - With: Emergency Department - When: As needed - Reason: Worsening of condition Followup: dr5 - With: Private Physician - When: 1 - 2 days - Reason: Recheck today's complaints, Continuance of care, Re-evaluation by your physician Discharge Instructions: - Discharge Summary Sheet dr5 - Dental Abscess dr5 Forms: - Medication Reconciliation Form dr5 - Antibiotic Education dr5 - Patient Portal Instructions dr5 - Leadership Thank You Letter dr5 Prescriptions: - Anaprox DS 550 mg Oral Tablet - take 1 tablet ORAL route every 12 hours As needed; 20 tablet; Refills: 0, dr5 Product Selection Permitted - Augmentin 875-125 mg Oral Tablet - take 1 tablet ORAL route every 12 hours for 10 days; 20 tablet; Refills: 0, dr5 Product Selection Permitted Signatures: Gissel Ayala RN RN cm10 Pavan Bell FNP-C MANAGER CLINICAL-Cdr5 Corrections: (The following items were deleted from the chart) 19:12 19:11 Onset: The symptoms/episode began/occurred 1 week(s) ago, dr5 dr5
--- NOTE | 2024-05-04 19:14 | ER ---
Nurse's Notes [facility] Name: Juvencio Iyer III Age: 59 yrs Sex: Male : 1965 Arrival Date: 05/04/2024 Time: 18:52 Bed Waiting Private MD: Diagnosis: Dental caries, unspecified Presentation: 05/04 19:09 Chief complaint: Patient states: Pain to tooth on left lower side onset Saturday. cm10 Coronavirus screen: Client denies travel out of the [place] in the last 14 days. Ebola Screen: Patient denies travel to an Ebola-affected area in the 21 days before illness onset. No symptoms or risks identified at this time. Initial Sepsis Screen: Does the patient meet any 2 criteria? No. Patient's initial sepsis screen is negative. Does the patient have a suspected source of infection? No. Patient's initial sepsis screen is negative. Risk Assessment: Do you want to hurt yourself or someone else? Patient reports no desire to harm self or others. Onset of symptoms was May 04, 2024. 19:09 Method Of Arrival: Ambulatory cm10 19:09 Acuity: JESSY 4 cm10 Triage Assessment: 19:10 General: Appears in no apparent distress. uncomfortable, Behavior is calm, cooperative. cm10 Pain: Complains of pain in lower left first molar and lower left second bicuspid Pain currently is 9 out of 10 on a pain scale. EENT: Dental caries noted in lower left first molar (#19) and lower left second bicuspid (#20) Reports pain in lower left first molar and lower left second bicuspid. Neuro: No deficits noted. Level of Consciousness is awake, alert, obeys commands, Oriented to person, place, time, situation, Appropriate for age. Respiratory: No deficits noted. Airway is patent Respiratory effort is even, unlabored, Respiratory pattern is regular, symmetrical. Historical: - Allergies: 19:10 Codeine; cm10 - Home Meds: 19:10 None [Active]; cm10 - PMHx: 19:10 None; cm10 - PSHx: 19:10 None; cm10 - Immunization history:: Adult Immunizations up to date. - Infectious Disease History:: Denies. - Social history:: Smoking status: Patient reports the use of cigarette tobacco products, smokes one-half pack cigarettes per day. Screenin:11 [facility] ED Fall Risk Assessment (Adult) History of falling in the last 3 months, cm10 including since admission No falls in past 3 months (0 pts) Confusion or Disorientation No (0 pts) Intoxicated or Sedated No (0 pts) Impaired Gait No (0 pts) Mobility Assist Device Used No (0 pt) Altered Elimination No (0 pt) Score/Fall Risk Level 0 - 2 = Low Risk Oriented to surroundings, Maintained a safe environment, Hourly rounding (assess needs \T\ fall precautionary measures) done. Abuse screen: Denies threats or abuse. Denies injuries from another. Nutritional screening: No deficits noted. Tuberculosis screening: No symptoms or risk factors identified. Vital Signs: 19:09 BP 117 / 80; Pulse 84; Resp 16; Temp 97.8(TE); Pulse Ox 99% on R/A; Pain 9/10; cm10 19:09 Pain Scale: Adult cm10 ED Course: 18:56 Patient arrived in ED. ra3 18:57 [facility]. dr5 18:57 Esequiel Bryant MD is Attending Physician. dr5 19:10 Triage completed. cm10 19:11 Arm band placed on right wrist. Patient placed in waiting room. cm10 19:11 Patient has correct armband on for positive identification. Provided Education on: cm10 Follow-up instructions. 19:11 No provider procedures requiring assistance completed. Patient did not have IV access cm10 during this emergency room visit. Administered Medications: No medications were administered Medication: 19:11 VIS not applicable for this client. cm10 Outcome: 19:14 Discharge ordered by . dr5 19:17 Discharged to home ambulatory, cm10 19:17 Condition: good 19:17 Discharge instructions given to patient, Instructed on discharge instructions, follow up and referral plans. medication usage, Demonstrated understanding of instructions, follow-up care, medications, Prescriptions given X 2, 19:18 Patient left the ED. cm10 Signatures: Gissel Ayala RN RN cm10 Mary Sales ra3 Pavan Bell FNP-Real [employer]-Cdr5
[2024-05-04 20:09] VITALS: BP 117/80; TEMP 97.8; O2SAT 99
== END 2024-05-04 19:18 | disposition home or self-care (01) ==
LOC: ER 18:52
DX: K02.9 Dental caries, unspecified (principal); F17.210 Nicotine dependence, cigarettes, uncomplicated
CPT/HCPCS: 99283

== ENCOUNTER 2024-05-20 17:30 | Emergency (ER) | payer OTHER ==
--- OUTSIDE RECORDS SUMMARY | 2024-05-20 17:32 | XMS REPORT | Continuity of Care Document ---
Author Name Unknown Address [address] [facility] [address] [place] [address] [facility] thconnect Address [address] [facility] [address] [place] [address] Care Team Providers Care Protective Signal Repairer Helper Name Role Phone Paula Hernández Primary Care Physician [phone] Allergies, Adverse Reactions, Alerts Allergy Name Allergy [...] Heart Rate 2023-12-18 13:11:00 74.00 /min Beverly Armenta Respiratory Rate 2023-12-18 13:11:00 18.00 /min Ben Armenta BP Systolic 2023-12-18 13:11:00 125 mm[Hg] Step jeni Armenta BP Diastolic 2023-12-18 13:11:00 80 mm[Hg] Roman Armenta Weight Measured 2023-12-18 13:11:00 151.00 pounds Ben Armenta Height Measured 2023-12-18 13:11:00 69.00 inches Ben Armenta Body Temperature 2023-12-18 13:11:00 98.10 degrees Ben Armenta Encounters Start Date/Time End Date/Time Encounter Type Admission Type Attending [facility] Facility Care Department Encounter ID Source 2023-12-18 13:11:10 2023-12-18 13:11:[address] [facility] [id number] Ben Armenta 2023-12-18 00:00:00 2023-12-18 00:00:[address] [facility] [id number] Ben Armenta Results Test Description Test Time Test Comments Results Result Co mments Source Ben Armenta Notes Date/Time Note Provider Source Ben Armenta [facility]
--- NOTE | 2024-05-20 17:43 | EDPHYS ---
Physician Documentation [facility] Name: Juvencio Iyer III Age: 59 yrs Sex: Male : 1965 Arrival Date: 05/20/2024 Time: 17:30 Bed Waiting Private MD: ED Physician Pratik Stevens HPI: 05/20 17:44 This 59 yrs old Male presents to ER via Unassigned with complaints of ec2 Toothache. 17:44 Patient arrives today for evaluation of dentalgia. Patient reports that he was supposed ec2 to have his tooth pulled the other day however missed his appointment. No fevers or chills, no nausea or vomiting. Reports left lower dental pain. Recently on Augmentin.. Historical: - Allergies: 17:55 Codeine; ko1 - Immunization history:: Adult Immunizations unknown. - Infectious Disease History:: Denies. - Social history:: Smoking status: Patient reports the use of cigarette tobacco products, smokes one pack cigarettes per day. ROS: 17:44 Constitutional: as per hpi ec2 Exam: 17:44 Constitutional: GEN: NAD Head: atraumatic Eyes: EOMI Ears: External ears are normal. ec2 Mouth: Erythema at the left lower gumline, no overlying facial swelling, no submandibular swelling, no trismus. CV: regular rate LUNGS: no respiratory distress ABD: non-distended SKIN: no evidence of rashes MSK: no evidence of trauma Vital Signs: 17:52 BP 123 / 79; Pulse 84; Resp 18; Temp 97.2; Pulse Ox 98% ; ko1 MDM: 17:38 Medical Screening Exam initiated ec2 17:44 Data reviewed: vital signs, nurses notes. ED course: Patient arrives today for ec2 evaluation of left lower dental pain. Examination remarkable for dental findings as above. Will start the patient on Augmentin and instructed him to follow-up with his dentist. Return precautions given. Administered Medications: 17:59 Drug: Amoxicillin-Clavulanate PO 875 mg PO once Route: PO; ko1 17:59 Follow up: Response: Medication Administered at Departure ko1 17:59 Not Given (Patient Refused): [id number] mg PO once ko1 17:59 Not Given (Patient Refused): [id number] mg PO once ko1 Disposition Summary: 05/20/24 17:43 Discharge Ordered Notes: Location: Home ec2 Condition: Stable ec2 Diagnosis - Dentalgia ec2 Followup: ec2 - With: Private Physician - When: - Reason: Re-evaluation by your physician Discharge Instructions: - Discharge Summary Sheet ec2 - Dental Caries, Adult, [id number] ec2 Forms: - Medication Reconciliation Form ec2 - Antibiotic Education ec2 - Prescription Opioid Use ec2 - Patient Portal Instructions ec2 - Leadership Thank You Letter ec2 Prescriptions: - Augmentin 875-125 mg Oral Tablet - take 1 tablet ORAL route every 12 hours for 10 days; 20 tablet; Refills: 0, ec2 Product Selection Permitted Signatures: Millie Gomes RN RN ko1 Pratik Stevens MD MD ec2
--- NOTE | 2024-05-20 17:59 | ER ---
Nurse's Notes [facility] Name: Juvencio Iyer III Age: 59 yrs Sex: Male : 1965 Arrival Date: 05/20/2024 Time: 17:30 Bed Waiting Private MD: Diagnosis: Dentalgia Presentation: 05/20 17:52 Chief complaint: Patient states: tooth abscess, missed dentist appointment due to work. ko1 Coronavirus screen: At this time, the client does not indicate any symptoms associated with coronavirus-19. Ebola Screen: No symptoms or risks identified at this time. Initial Sepsis Screen: Does the patient meet any 2 criteria? No. Patient's initial sepsis screen is negative. Does the patient have a suspected source of infection? No. Patient's initial sepsis screen is negative. Risk Assessment: Do you want to hurt yourself or someone else? Patient reports no desire to harm self or others. Onset of symptoms is unknown. 17:52 Method Of Arrival: Ambulatory ko1 17:52 Acuity: JESSY 5 ko1 Triage Assessment: 17:55 General: Appears in no apparent distress. Behavior is calm, cooperative, appropriate ko1 for age. Pain: Complains of pain in lower left cuspid. EENT: Reports pain in mouth. Historical: - Allergies: 17:55 Codeine; ko1 - Immunization history:: Adult Immunizations unknown. - Infectious Disease History:: Denies. - Social history:: Smoking status: Patient reports the use of cigarette tobacco products, smokes one pack cigarettes per day. Screenin:57 [facility] ED Fall Risk Assessment (Adult) History of falling in the last 3 months, ko1 including since admission No falls in past 3 months (0 pts) Confusion or Disorientation No (0 pts) Intoxicated or Sedated No (0 pts) Impaired Gait No (0 pts) Mobility Assist Device Used No (0 pt) Altered Elimination No (0 pt) Score/Fall Risk Level 0 - 2 = Low Risk Oriented to surroundings, Maintained a safe environment, Educated pt \T\ family on fall prevention, incl call for assistance when getting out of bed. Abuse screen: Denies threats or abuse. Denies injuries from another. Nutritional screening: No deficits noted. Tuberculosis screening: No symptoms or risk factors identified. Vital Signs: 17:52 BP 123 / 79; Pulse 84; Resp 18; Temp 97.2; Pulse Ox 98% ; ko1 ED Course: 17:34 Patient arrived in ED. mg5 17:38 Pratik Stevens MD is Attending Physician. ec2 17:55 Triage completed. ko1 17:55 Arm band placed on right wrist. Patient placed in an exam room, Patient notified of ko1 wait time. 17:57 Patient has correct armband on for positive identification. Provided Education on: meds.ko1 17:57 No provider procedures requiring assistance completed. Patient did not have IV access ko1 during this emergency room visit. Administered Medications: 17:59 Drug: Amoxicillin-Clavulanate PO 875 mg PO once Route: PO; ko1 17:59 Follow up: Response: Medication Administered at Departure ko1 17:59 Not Given (Patient Refused): [id number] mg PO once ko1 17:59 Not Given (Patient Refused): [id number] mg PO once ko1 Medication: 17:57 VIS not applicable for this client. ko1 Outcome: 17:43 Discharge ordered by . ec2 17:57 Discharged to home ambulatory, ko1 17:57 Condition: stable 17:57 Discharge instructions given to patient, Instructed on discharge instructions, follow up and referral plans. medication usage, Demonstrated understanding of instructions, follow-up care, medications, Prescriptions given X 1, 17:58 Patient left the ED. ko1 Signatures: Millie Gomes, RUFINA RN ko1 Sharon Wolfe mg5 Pratik Stevens MD MD ec2
[2024-05-20 18:15] VITALS: BP 123/79; TEMP 97.2; O2SAT 98
== END 2024-05-20 17:58 | disposition home or self-care (01) ==
LOC: ER 17:30
DX: K08.89 Other specified disorders of teeth and supporting structures (principal); F17.210 Nicotine dependence, cigarettes, uncomplicated

== ENCOUNTER 2024-07-22 14:08 | Emergency (ER) | payer OTHER ==
--- OUTSIDE RECORDS SUMMARY | 2024-07-22 14:11 | XMS REPORT | Continuity of Care Document ---
Author Name Unknown Address [address] [facility] [address] [place] [address] [facility] thconnect Address [address] [facility] [address] [place] [address] Care Team Providers Care Spanish Professor Name Role Phone Paula Hernández Primary Care Physician Allergies, Adverse Reactions, Alerts Allergy Name Allergy [...] End Date/Time Encounter Type Admission Type Attending [facility] Facility Care Department Encounter ID Source 2023-12-18 13:11:10 2023-12-18 13:11:[address] [facility] [id number] Ben Armenta 2023-12-18 00:00:00 2023-12-18 00:00:00 Outpatient Visit [facility] [id number] Ben Armenta Results Test Description Test Time Test Comments Results Result Co mments Source Ben Armenta
--- NOTE | 2024-07-22 14:35 | EDPHYS ---
Physician Documentation [facility] Name: Juvencio Iyer III Age: 59 yrs Sex: Male : 1965 Arrival Date: 07/22/2024 Time: 14:08 Bed IW1 Private MD: ED Physician Farzad Bartholomew HPI: 07/22 14:29 This 59 yrs old Male presents to ER via Ambulatory with complaints of work note. cp 14:29 Patient is a 59-year-old male with no significant past medical history who presents to the emergency department requesting a note to return to work. Patient reports he missed the last several days and uses PTO time at work due to a recent illness. Patient reports he feels well and no complaints but was told by his employer to obtain a release to return to work. Patient feels as though he can return to full duty. Historical: - Allergies: 14:28 Codeine; aa5 - Home Meds: 14:29 None [Active]; aa5 - PMHx: 14:29 None; aa5 - Immunization history:: Adult Immunizations unknown. - Infectious Disease History:: Denies. - Social history:: Smoking status: Patient reports the use of cigarette tobacco products. ROS: 14:31 Constitutional: history per [facility] Exam: 14:31 Head/Face: Normocephalic, atraumatic. cp 14:31 Constitutional: The patient appears in no acute distress, alert, awake, comfortable, non-toxic, well developed, well nourished, 14:31 Eyes: Periorbital structures: appear normal, Conjunctiva: normal, no exudate, no injection, Sclera: no appreciated abnormality, Lids and lashes: appear normal, bilaterally, 14:31 ENT: External ear(s): are unremarkable, Nose: is normal, Mouth: Lips: moist, Oral mucosa: moist, Posterior pharynx: Airway: no evidence of obstruction, patent, 14:31 Chest/axilla: Inspection: normal, 14:31 Cardiovascular: Rate: normal, Rhythm: regular, 14:31 Respiratory: the patient does not display signs of respiratory distress, Respirations: normal, no use of accessory muscles, no retractions, labored breathing, is not present, Breath sounds: are clear throughout, no decreased breath sounds, 14:31 Abdomen/GI: Exam negative for discomfort, distension, guarding, Inspection: abdomen appears normal, 14:31 Back: pain, is absent, ROM is normal, 14:31 Neuro: Orientation: to person, place \T\ time. Mentation: is normal, Motor: moves all fours, strength is normal, Gait: is steady, at a normal pace, without difficulty, Vital Signs: 14:28 BP 119 / 80; Pulse 78; Resp 18 S; Temp 98(TE); Pulse Ox 96% on R/A; Weight 72.57 kg aa5 (R); Height 5 ft. 9 in. (R); 14:28 Body Mass Index 23.63 (72.57 kg, 175.26 cm) aa5 MDM: 14:29 Medical Screening Exam initiated cp 14:34 Data reviewed: vital signs, nurses notes, and as a result, I will discharge patient. cp 14:34 Counseling: I had a detailed discussion with the patient and/or guardian regarding the cp historical points, exam findings, and any diagnostic results supporting the discharge/admit diagnosis, to return to the emergency department if symptoms worsen or persist or if there are any questions or concerns that arise at home. Administered Medications: No medications were administered Disposition: 07/23 09:38 Co-signature as Attending Physician, Farzad Bartholomew MD I agree with the assessment and rosamaria plan of care. Disposition Summary: 07/22/24 14:34 Discharge Ordered Notes: Location: Home cp Problem: new cp Symptoms: have improved cp Condition: Stable cp Diagnosis - Encounter for screening, unspecified cp Followup: cp - With: Private Physician - When: As needed - Reason: Worsening of condition Discharge Instructions: - Discharge Summary Sheet cp - Health Maintenance, Male cp Forms: - Work release form cp - Medication Reconciliation Form cp - Antibiotic Education cp - Prescription Opioid Use cp - Patient Portal Instructions cp - Leadership Thank You Letter cp Signatures: Farzad Bartholomew MD MD cha Calderon, Audri, RN RN aa5 Farzad Ontiveros PA PA cp
--- NOTE | 2024-07-22 14:35 | ER ---
Nurse's Notes [facility] Name: Juvencio Iyer III Age: 59 yrs Sex: Male : 1965 Arrival Date: 07/22/2024 Time: 14:08 Bed IW1 Private MD: Diagnosis: Encounter for screening, unspecified Presentation: 07/22 14:28 Chief complaint: Patient states: "I just need a work note to return back to work". Pt aa5 denies any symptoms. Coronavirus screen: At this time, the client does not indicate any symptoms associated with coronavirus-19. Ebola Screen: Patient denies travel to an Ebola-affected area in the 21 days before illness onset. Initial Sepsis Screen: Does the patient meet any 2 criteria? No. Patient's initial sepsis screen is negative. Does the patient have a suspected source of infection? No. Patient's initial sepsis screen is negative. Risk Assessment: Do you want to hurt yourself or someone else? Patient reports no desire to harm self or others. Onset of symptoms was July 22, 2024. 14:28 Acuity: JESSY 5 aa5 14:28 Method Of Arrival: Ambulatory aa5 Historical: - Allergies: 14:28 Codeine; aa5 - Home Meds: 14:29 None [Active]; aa5 - PMHx: 14:29 None; aa5 - Immunization history:: Adult Immunizations unknown. - Infectious Disease History:: Denies. - Social history:: Smoking status: Patient reports the use of cigarette tobacco products. Screenin:30 [facility] ED Fall Risk Assessment (Adult) History of falling in the last 3 months, aa5 including since admission No falls in past 3 months (0 pts) Confusion or Disorientation No (0 pts) Intoxicated or Sedated No (0 pts) Impaired Gait No (0 pts) Mobility Assist Device Used No (0 pt) Altered Elimination No (0 pt) Score/Fall Risk Level 0 - 2 = Low Risk Oriented to surroundings, Maintained a safe environment, Educated pt \\T\\ family on fall prevention, incl call for assistance when getting out of bed. Abuse screen: Denies threats or abuse. Nutritional screening: No deficits noted. Tuberculosis screening: No symptoms or risk factors identified. Assessment: 14:28 General: Appears comfortable, Behavior is calm, cooperative. General: Pt states "I had aa5 a stomach bug for a few days and I stayed home and got better but now I need a work excuse" . Pain: Denies pain. Neuro: Level of Consciousness is awake, alert, obeys commands, Oriented to person, place, time, situation. Cardiovascular: Patient's skin is warm and dry. Respiratory: Airway is patent Respiratory effort is even, unlabored, Respiratory pattern is regular, symmetrical. GI: No signs and/or symptoms were reported involving the gastrointestinal system. : No signs and/or symptoms were reported regarding the genitourinary system. EENT: No signs and/or symptoms were reported regarding the EENT system. Derm: Skin is pink, warm \\T\\ dry. Musculoskeletal: Range of motion: intact in all extremities. 14:37 Reassessment: Patient is alert, oriented x 3, equal unlabored respirations, skin aa5 warm/dry/pink. Vital Signs: 14:28 BP 119 / 80; Pulse 78; Resp 18 S; Temp 98(TE); Pulse Ox 96% on R/A; Weight 72.57 kg aa5 (R); Height 5 ft. 9 in. (R); 14:28 Body Mass Index 23.63 (72.57 kg, 175.26 cm) aa5 ED Course: 14:10 Patient arrived in ED. im 14:17 Farzad Ontiveros PA is PHCP. cp 14:17 Farzad Bartholomew MD is Attending Physician. cp 14:28 Triage completed. aa5 14:28 Arm band placed on. aa5 14:28 Patient has correct armband on for positive identification. aa5 14:29 Alicia Prieto RN is Primary Nurse. aa5 14:37 No provider procedures requiring assistance completed. Patient did not have IV access aa5 during this emergency room visit. Administered Medications: No medications were administered Medication: 14:38 VIS not applicable for this client. aa5 Outcome: 14:34 Discharge ordered by . cp 14:37 Discharged to home ambulatory, aa5 14:37 Condition: good 14:37 Discharge instructions given to patient, Instructed on discharge instructions, follow up and referral plans. Demonstrated understanding of instructions, follow-up care, 14:38 Patient left the ED. aa5 Signatures: Alicia Prieto RN RN aa5 Page, Farzad, PA PA cp West, Ericka im
[2024-07-24 02:17] VITALS: BP 119/80; TEMP 98; O2SAT 96
== END 2024-07-22 14:38 | disposition home or self-care (01) ==
LOC: ER 14:08
DX: Z02.79 Encounter for issue of other medical certificate (principal); F17.210 Nicotine dependence, cigarettes, uncomplicated
CPT/HCPCS: 99282